=== PATIENT | male | born 1990 | race African-American/Black ===

== ENCOUNTER 2019-12-13 18:10 | Emergency (ER) | payer OTHER, SELFPAY ==
--- NOTE | 2019-12-13 18:21 | ED.URI ---
HPI - URI/Sore Throat General Chief Complaint: Upper Respiratory Infection Stated Complaint: chest congestion/asthma symptoms Time Seen by Provider: 12/13/19 18:34 Source: patient and RN notes reviewed Mode of arrival: ambulatory Limitations: no limitations History of Present Illness HPI Narrative: 29-year-old male presents with concern for asthma exacerbation. Reports chest tightness, shortness of breath. Reports a history of asthma. Reports he has a nebulizer at home that he has not used. Reports he has been using his rescue inhaler more frequently. Reports he uses a daily controller medicine. Reports history of hospitalizations for asthma. He denies fever, body aches, chills, diarrhea, nausea. MD elicited complaint: other (Wheezing) Related Data Allergies Allergy/AdvReac Type Severity Reaction Status Date / Time No Known Allergies Allergy Verified 12/13/19 18:49 Review of Systems Review of Systems: Narrative: CONSTITUTIONAL: Denies malaise, chills, sweats, or fever. EYES: Denies visual changes, redness, or discharge. ENT: Denies rhinorrhea, congestion, sinus pain, otalgia and sore throat. CARDIOVASCULAR: Denies chest pain, palpitations, or edema. RESPIRATORY: Denies cough. Denies chest tightness and dyspnea. GASTROINTESTINAL: Denies abdominal pain, nausea, vomiting, diarrhea SKIN: Denies rash or itching. MUSCULOSKELETAL: Denies myalgia. NEUROLOGIC: Denies headache. All systems reviewed & are unremarkable except as noted in HPI and below PMFSH Comments At time of signature, agree with nursing past medical, surgical, social and family history. There is no relevant family history pertinent to the presenting complaint Exam Narrative: Exam Narrative: GENERAL: Well-appearing, well-nourished, and in no acute distress. HEAD: Normocephalic EYES: PERRLA, conjunctivae clear ENT: Nares clear, turbinates erythematous, clear discharge. Mucous membranes moist. TM pearly mohr with dull light reflex bilaterally; no tragal tenderness. Oropharynx not erythematous without lesions. Tonsils not enlarged and without exudate, no drooling, no hoarseness, no trismus, uvula midline. NECK: Supple. No lymphadenopathy CHEST: Scattered expiratory wheeze otherwise clear to auscultation, breath sounds equal. Aeration good. No rhonchi, rales, or stridor. No respiratory distress, speaks in full sentences. HEART: Regular rate and rhythm. No murmur heard. SKIN: Warm, dry, no rash. NEURO: Alert and oriented x3. PSYCH: Normal mood and affect Course Course Emergency Course: Patient is aware of diagnosis, understands and agrees to treatment plan. Anticipatory guidance given. Patient agrees to follow-up as directed and is aware of reasons to seek care at the emergency department. Portions of this record may have been created with voice recognition software Vital Signs Vital signs: Vital Signs Temperature 97.9 F 12/13/19 18:25 Pulse Rate 96 12/13/19 18:25 Respiratory Rate 24 H 12/13/19 18:25 Blood Pressure 118/84 12/13/19 18:25 Pulse Oximetry 95 12/13/19 18:25 Temperature 97.9 F 12/13/19 18:25 Pulse Rate 96 12/13/19 18:25 Respiratory Rate 24 H 12/13/19 18:25 Blood Pressure 118/84 12/13/19 18:25 Pulse Oximetry 95 12/13/19 18:25 Reviewed. MDM - URI/Sore Throat MDM Narrative Medical decision making narrative: Differential diagnosis considered: Asthma exacerbation, COVID-19, strep pharyngitis, allergic rhinitis, upper respiratory tract infection, sinusitis, rhinosinusitis, nasopharyngitis. viral pharyngitis, otitis media, otitis externa, pneumonia, bronchitis, viral cough syndrome, viral syndrome, and influenza. Exam findings show no acute concerns or changes; patient is non-toxic appearing and is in no distress. Patient is appropriate for outpatient treatment and follow-up. Patient is low risk for COVID-19, has no exposure to known positive patient, no travel, no fever, no body aches, shortness of breath and chest tigh
[2019-12-13 18:25] VITALS: BP 118/84; PULSE 96; RESP 24; TEMP 36.6; O2SAT 95
== END 2019-12-13 19:00 | disposition home or self-care (01) ==
PROVIDERS: Emergency Provider Nurse Practitioner
DX: J45.41 Moderate persistent asthma with (acute) exacerbation (principal)
CPT/HCPCS: 99213; G0463

== ENCOUNTER 2021-03-22 16:54 | Emergency (ER) | payer OTHER, SELFPAY ==
[2021-03-22 17:05] VITALS: BP 143/76; PULSE 88; RESP 18; TEMP 36.9; O2SAT 98
--- NOTE | 2021-03-22 17:48 | ED.SOB ---
HPI - SOB/Dyspnea General Chief Complaint: Shortness of Breath/Dyspnea Stated Complaint: Shortness of breath Time Seen by Provider: 03/22/21 17:49 Source: patient, RN notes reviewed and old records reviewed Limitations: no limitations History of Present Illness HPI Narrative: 30 year old male preaents to express care with complaints of increasing shortness of breath for the past 2 days. Patient states that on Sunday he experienced increasing shortness of breath which lasted most of the day but over Sunday and Sunday he felt fine. He reports that since yesterday he has had increasing shortness of breath with some cough and wheezing noted, He states that he has been using his nebulizer and rescue inhaler with shortness of breath returning before next dose due. Patient denies any fevers, chills or sweats, denies any sinus congestion or drainage or any known sick contacts. MD elicited complaint: shortness of breath and cough Pertinent past history: asthma Onset (ago): day(s) (intermittent since Sunday) Timing: intermittent Severity: moderate Relieving factors: bronchodilators Treatment prior to arrival: bronchodilator Related Data Home oxygen amount: none Home Medications Medication Instructions Recorded Confirmed albuterol sulfate [Ventolin HFA] 90 inh INHALATION Q4-6H PRN 03/22/21 03/22/21 azelastine 137 mcg INTRANASAL DAILY 03/22/21 03/22/21 [id number] 160 inh INHALATION DAILY 03/22/21 03/22/21 [Breztri Aerosphere] montelukast 10 mg PO DAILY 03/22/21 03/22/21 Allergies Allergy/AdvReac Type Severity Reaction Status Date / Time No Known Allergies Allergy Verified 03/22/21 17:13 Review of Systems Review of Systems: Narrative: CONSTITUTIONAL: Denies fever, chills, or sweats. EYES: Denies visual changes, redness, or discharge. ENT: Denies rhinorrhea, congestion, sore throat, or otalgia. CARDIOVASCULAR: Denies chest pain, palpitations, or edema. RESPIRATORY: Positive for cough and dyspnea.tightness to chest with breathing GASTROINTESTINAL: Denies abdominal pain, nausea, vomiting, or diarrhea. GENITOURINARY: Denies dysuria or hematuria. SKIN: Denies rash or itching. MUSCULOSKELETAL: Denies back pain, joint pain, or myalgia. NEUROLOGIC: Denies headache, numbness, or weakness. PSYCHIATRIC: Denies anxiety or depression. All systems reviewed & are unremarkable except as noted in HPI and below PMFSH Past Medical History Medical History Asthma Surgical History Surgical History (Updated 03/25/21 @ 22:12 by Vandana Leung NP) No history of previous surgery Family History Family History Other No significant family history Social History Social History Smoking status: Never smoker Alcohol intake: current Alcohol use details: rare social Substance use: never Living arrangements: with family Gender identity (if verbalized by the patient): Male Exam Narrative: Exam Narrative: GENERAL: Well-appearing, well-nourished, and in no acute distress. HEAD: Normocephalic, atraumatic. EYES: PERRLA and EOMI. ENT: Nares clear, no rhinorrhea or epistaxis. Mucous membranes moist.TM's normal with good light reflex, throat pink with no lesions or exudates, no tonsil enlargement. NECK: Supple.no lymphadenopathy CHEST: Scattered wheezing on auscultation. No respiratory distress.SAO2 98% on room air, occasional dry cough HEART: Regular rate and rhythm. No murmur heard. Normal peripheral pulses. ABDOMEN: Soft, nontender, nondistended, normal active bowel sounds. EXTREMITIES: Normal range of motion. No edema. SKIN: Warm, dry, no rash. NEURO: No focal deficits. Alert and oriented x3. Course Vital Signs Vital signs: Vital Signs Temperature 36.9 C 03/22/21 17:05 Pulse Rate 88 03/22/21 17:05 Respiratory Rate 18 03/22/21 17:05
[2021-03-22] MEDS: IPRATROPIUM BR 0.02% INH SOLN 0.5 MG/2.5 ML VIAL INHALATION (18:16)
[2021-03-22] MEDS: ALBUTEROL SULFATE NEB 2.5 MG/3 ML INH INHALATION (18:16)
[2021-03-22 18:40] VITALS: PULSE 85; RESP 22; O2SAT 97
== END 2021-03-22 18:49 | disposition home or self-care (01) ==
PROVIDERS: Emergency Provider Registered Nurse; PCP Nurse Practitioner Family
DX: J45.901 Unspecified asthma with (acute) exacerbation (principal)
CPT/HCPCS: 94640; 99213; G0463

== ENCOUNTER 2021-08-06 16:31 | Emergency (ER) | payer OTHER, SELFPAY ==
[2021-08-06 16:38] VITALS: BP 143/88; PULSE 106; RESP 20; TEMP 37.1; O2SAT 100
--- NOTE | 2021-08-06 16:38 | ED.UPPEXIN ---
HPI - Extremity Injury (Upper) General Chief Complaint: Extremity Injury, Upper Stated Complaint: Finger Injury/Right Time Seen by Provider: 08/06/21 16:38 Source: patient and RN notes reviewed History of Present Illness HPI narrative: Patient is a 31-year-old male who presents the urgent care with complaints of swelling, redness and infection of the right third finger. Patient states he noticed it yesterday and increased in swelling when he woke up today. Patient has not done anything [id number] for his symptoms. Denies of any trauma or injury. Patient does admit to biting his fingernails/cuticles. No other acute complaints. No acute distress noted. Patient read the plan of care. Some parts of this dictation were generated by voice recognition software and may contain typographical and/or grammatical inaccuracies. Related Data Home Medications Medication Instructions Recorded Confirmed albuterol sulfate [Ventolin HFA] 90 inh INHALATION Q4-6H PRN 03/22/21 03/22/21 nhtpxheheq-qtcrlhkg-driyydkcrq 160 inh INHALATION DAILY 03/22/21 03/22/21 [[employer]] montelukast 10 mg PO DAILY 03/22/21 03/22/21 Allergies Allergy/AdvReac Type Severity Reaction Status Date / Time No Known Allergies Allergy Verified 03/22/21 17:13 Review of Systems Review of Systems: CONSTITUTIONAL: Denies fever, chills, or sweats. EYES: Denies visual changes, redness, or discharge. ENT: Denies rhinorrhea, congestion, sore throat, or otalgia. CARDIOVASCULAR: Denies chest pain, palpitations, or edema. RESPIRATORY: Denies cough or dyspnea. GASTROINTESTINAL: Denies abdominal pain, nausea, vomiting, or diarrhea. GENITOURINARY: Denies dysuria or hematuria. SKIN: Reports of swelling, pain to the right third finger MUSCULOSKELETAL: Denies back pain, joint pain, or myalgia. NEUROLOGIC: Denies headache, numbness, or weakness. All other systems reviewed are negative, except as documented in HPI. [facility] Past Medical History Medical History (Updated 08/06/21 @ 16:59 by YADY Kimble) Asthma Surgical History Surgical History (Updated 03/25/21 @ 22:12 by Vandana Leung NP) No history of previous surgery Family History Family History Other No significant family history Social History Social History Smoking status: Never smoker Alcohol intake: current Alcohol use details: rare social Substance use: never Gender identity (if verbalized by the patient): Male Comments At the time of my signature, I reviewed and agree with the nursing past medical, surgical, social, and family history. There is no relevant family history pertinent to the patient complaint. Exam Narrative: GENERAL: This is a well-nourished, well-developed patient, in no apparent distress. HEAD: normocephalic, atraumatic. EYES: PERRL. Sclera clear/white. Vision is grossly intact. EARS: External ears normal NOSE: External nose normal with no obvious nasal discharge, nares without redness, no rhinorrhea. THROAT: Mucous membranes moist NECK: Neck supple CARDIOVASCULAR: Regular rate and rhythm without murmurs, gallops, or rubs. RESPIRATORY: Clear to auscultation. Breath sounds equal bilaterally. No wheezes, rales, or rhonchi. SKIN: Moderate erythema and edema surrounding the proximal cuticle to the ulnar aspect of the right third digit with moderate tenderness-paronychia NEURO: awake, alert, and oriented to person, place and time. There were no obvious focal neurologic abnormalities. EXTREMITIES: No clubbing, cyanosis, or edema. Positive strong right radial pulse with capillary refill less than 2 seconds Course Vital Signs Vital signs: Vital Signs Temperature 98.8 F 08/06/21 16:38 Pulse Rate 106 H 08/06/21 16:38 Respiratory Rate 20 08/06/21 16:38 Blood Pressure 143/88 H 08/06/21 16:38 Pulse Oximetry 100 08/06/21 16:38
== END 2021-08-06 17:11 | disposition home or self-care (01) ==
PROVIDERS: Emergency Provider Nurse Practitioner Family; PCP Nurse Practitioner Family
DX: L03.011 Cellulitis of right finger (principal); J45.909 Unspecified asthma, uncomplicated
CPT/HCPCS: 10060; 99213; G0463

== ENCOUNTER 2022-01-07 11:41 | Emergency (ER) | payer OTHER, SELFPAY ==
--- NOTE | 2022-01-07 11:46 | ED.GENADULT ---
HPI - General Adult General Chief complaint: Upper Respiratory Infection Stated complaint: Shortness of Breath/Cough Time Seen by Provider: 01/07/22 11:46 Source: patient Mode of arrival: ambulatory Limitations: no limitations History of Present Illness HPI narrative: 30-year-old male patient presents to the [facility] with complaints of cough and shortness of breath for the past 4 days. Patient states he does have a history of asthma and thinks that with the weather change that his asthma has been exacerbated. Patient states he does been taking Singulair and using his rescue inhaler about 5 times a day. Patient denies fevers, body aches or chills. Patient states he is fully vaccinated against COVID and has had his flu shot this year. Related Data Home Medications Medication Instructions Recorded Confirmed qbolpcpjkj-etqiexzw-alnozjfzer 160 inh INHALATION DAILY 03/22/21 01/07/22 [facility] montelukast 10 mg PO DAILY 03/22/21 01/07/22 Allergies Allergy/AdvReac Type Severity Reaction Status Date / Time No Known Allergies Allergy Verified 03/22/21 17:13 Review of Systems Review of Systems: CONSTITUTIONAL: Denies fever, chills, or sweats. EYES: Denies visual changes, redness, or discharge. ENT: Denies rhinorrhea, congestion, sore throat, or otalgia. CARDIOVASCULAR: Denies chest pain, palpitations, or edema. RESPIRATORY: Positive cough and dyspnea. GASTROINTESTINAL: Denies abdominal pain, nausea, vomiting, or diarrhea. GENITOURINARY: Denies dysuria or hematuria. SKIN: Denies rash or itching. MUSCULOSKELETAL: Denies back pain, joint pain, or myalgia. NEUROLOGIC: Denies headache, numbness, or weakness. PSYCHIATRIC: Denies anxiety or depression. [facility] Past Medical History Medical History Asthma Surgical History Surgical History No history of previous surgery Family History Family History Other No significant family history Social History Social History Smoking status: Never smoker Alcohol intake: current Alcohol use details: rare social Substance use: never Gender identity (if verbalized by the patient): Male Comments At the time of my signature I agree with nursing past medical history, surgical, social, and family history. There is no relevant family history pertinent to the presenting complaint. Exam Narrative: GENERAL: Well-appearing, well-nourished, and in no acute distress. HEAD: Normocephalic, atraumatic. EYES: PERRLA and EOMI. ENT: Nares clear, no rhinorrhea or epistaxis. Mucous membranes moist. NECK: Supple. No lymphadenopathy CHEST: Wheezing to bilateral upper and lower extremities on auscultation. No respiratory distress. Patient able talk in clear complete sentences. No tripoding noted HEART: Regular rate and rhythm. No murmur heard. Normal peripheral pulses. ABDOMEN: Soft, nontender, nondistended, normal active bowel sounds. EXTREMITIES: Normal range of motion. No edema. SKIN: Warm, dry, no rash. NEURO: No focal deficits. Alert and oriented x3. Course Course Level of Care: Express Care Visit Reevaluation(s) Reevaluation #1: Reevaluated patient and he states that he is feeling a little bit better. Continue to have some noted expiratory wheezing to upper lower lobes. Will discharge home with a course of oral steroids, refill on his rescue inhaler and his Singulair. Patient is aware of the plan of care denies any other questions or concerns. Date: 01/07/22 Time: 12:51 Vital Signs Vital signs: Vital Signs Temperature 36.9 C 01/07/22 11:48 Pulse Rate 85 01/07/22 11:48 Respiratory Rate 18 01/07/22 11:48 Blood Pressure 123/75 01/07/22 11:48 Pulse Oximetry 98 01/07/22 11:48 Temperature 36.9 C 01/07/22 11:55 Pulse Rate 85
[2022-01-07 11:48] VITALS: BP 123/75; PULSE 85; RESP 18; TEMP 36.9; O2SAT 98
[2022-01-07 11:55] VITALS: BP 123/75; PULSE 85; RESP 18; TEMP 36.9; O2SAT 98
[2022-01-07] MEDS: IPRATROPIUM BR 0.02% INH SOLN 0.5 MG/2.5 ML VIAL INHALATION (12:21)
[2022-01-07] MEDS: ALBUTEROL SULFATE NEB 2.5 MG/3 ML INH INHALATION (12:22)
== END 2022-01-07 12:56 | disposition home or self-care (01) ==
PROVIDERS: Emergency Provider Nurse Practitioner Family
DX: J45.901 Unspecified asthma with (acute) exacerbation (principal); Z20.822 Contact with and (suspected) exposure to COVID-19
CPT/HCPCS: 87426; 87804; 94640; 99213; C9803; G0463

== ENCOUNTER 2022-01-26 15:47 | Emergency (ER) | payer OTHER, SELFPAY ==
[2022-01-26 15:51] VITALS: BP 131/75; PULSE 88; RESP 16; TEMP 36.5; O2SAT 98
--- NOTE | 2022-01-26 15:59 | ED.SKABFB ---
HPI - Skin/Abscess/Foreign Bdy General Chief complaint: Skin/Abscess/Foreign Body Stated complaint: Rash on right foot Time Seen by Provider: 01/26/22 15:59 Source: patient and RN notes reviewed Mode of arrival: ambulatory Limitations: no limitations History of Present Illness HPI narrative: 31-year-old male presents concern for itchy rash on his right foot between his toes. Reports it started last . Reports has been using emhi-qun-uqlxrwz athlete's foot treatment without relief. He denies any other rash. Denies drainage or pain. MD complaint: rash Related Data Home Medications Medication Instructions Recorded Confirmed zyfcbmaasd-xpjmxjvu-vvtiecnlzp 160 inh INHALATION DAILY 03/22/21 01/07/22 [[employer]] Allergies Allergy/AdvReac Type Severity Reaction Status Date / Time No Known Allergies Allergy Verified 03/22/21 17:13 Review of Systems Review of Systems: CONSTITUTIONAL: Denies malaise, chills, sweats, or fever. EYES: Denies redness, or discharge. ENT: Denies rhinorrhea, congestion, swollen lips, swollen tongue CARDIOVASCULAR: Denies chest pain, palpitations, or edema. RESPIRATORY: Denies cough or dyspnea. GASTROINTESTINAL: Denies abdominal pain, nausea, vomiting SKIN: Reports itchy rash on the right foot between the toes MUSCULOSKELETAL: Denies joint pain or myalgia. NEUROLOGIC: Denies headache. All systems reviewed & are unremarkable except as noted in HPI and below PMFSH Past Medical History Medical History Asthma Surgical History Surgical History No history of previous surgery Family History Family History Other No significant family history Social History Social History Smoking status: Never smoker Alcohol intake: current Alcohol use details: rare social Substance use: never Gender identity (if verbalized by the patient): Male Comments At time of signature, agree with nursing past medical, surgical, social and family history. There is no relevant family history pertinent to the presenting complaint Exam Narrative: GENERAL: Well-appearing, well-nourished, and in no acute distress. HEAD: Normocephalic, atraumatic. EYES: PERRLA, conjunctivae clear, and EOMI. ENT: Mucous membranes moist. Oropharynx without edema, erythema or lesions. NECK: Supple. No lymphadenopathy CHEST: Clear to auscultation. No respiratory distress. HEART: Regular rate and rhythm. SKIN: Warm, dry. Papular skin colored rash with some plaque noted between all 5 digits of the right foot NEURO: Alert and oriented x3. PSYCH: Normal mood and affect Course Course Emergency Course: Patient is aware of diagnosis, understands and agrees to treatment plan. Anticipatory guidance given. Patient agrees to follow-up as directed and is aware of reasons to seek care at the emergency department. Portions of this record may have been created with voice recognition software Level of Care: Express Care Visit Vital Signs Vital signs: Vital Signs Temperature 97.7 F 01/26/22 15:51 Pulse Rate 88 01/26/22 15:51 Respiratory Rate 16 01/26/22 15:51 Blood Pressure 131/75 01/26/22 15:51 Pulse Oximetry 98 01/26/22 15:51 Temperature 97.7 F 01/26/22 15:51 Pulse Rate 88 01/26/22 15:51 Respiratory Rate 16 01/26/22 15:51 Blood Pressure 131/75 01/26/22 15:51 Pulse Oximetry 98 01/26/22 15:51 Reviewed. MDM - Skin/Abscess/Foreign Bdy MDM Narrative Medical decision making narrative: Does not appear at this time to be erythema multiforme, bullous, SJS, TEN; no evidence at this time to suggest RMSF, endocarditis or Lyme disease; patient looks well, nontoxic and is tolerating oral intake; no neurologic signs or symptoms; no headache, photophobia or neck pain; afeb
== END 2022-01-26 16:08 | disposition home or self-care (01) ==
PROVIDERS: Emergency Provider Nurse Practitioner; PCP Nurse Practitioner Family
DX: B35.3 Tinea pedis (principal); J45.909 Unspecified asthma, uncomplicated
CPT/HCPCS: 99213; G0463

== ENCOUNTER 2022-06-04 17:37 | Emergency (ER) | payer OTHER, SELFPAY ==
[2022-06-04 17:41] VITALS: BP 140/94; PULSE 90; RESP 18; TEMP 37.2; O2SAT 98
--- NOTE | 2022-06-04 18:10 | ED.SKABFB ---
HPI - Skin/Abscess/Foreign Bdy General Chief complaint: Skin/Abscess/Foreign Body Stated complaint: boil on bottom of right foot Time Seen by Provider: 06/04/22 18:20 Related Data Home Medications Medication Instructions Recorded Confirmed budesonide 160 mcg-glycopyr 9 160 inh inhalation BID 03/22/21 06/04/22 mcg-formot 4.8 mcg/actuation HFA inhaler (Breztri Aerosphere) azelastine 137 mcg (0.1 %) nasal 1 spray intranasal DAILY 06/04/22 06/04/22 spray aerosol fluticasone propionate 50 1 spray intranasal DAILY 06/04/22 06/04/22 mcg/actuation nasal spray,suspension Allergies Allergy/AdvReac Type Severity Reaction Status Date / Time No Known Allergies Allergy Verified 06/04/22 17:59 Review of Systems Review of Systems: CONSTITUTIONAL: Denies fever, chills, or sweats. EYES: Denies visual changes, redness, or discharge. ENT: Denies rhinorrhea, congestion, sore throat, or otalgia. CARDIOVASCULAR: Denies chest pain, palpitations, or edema. RESPIRATORY: Denies cough or dyspnea. GASTROINTESTINAL: Denies abdominal pain, nausea, vomiting, or diarrhea. GENITOURINARY: Denies dysuria or hematuria. SKIN: Denies rash or itching. MUSCULOSKELETAL: Denies back pain, joint pain, or myalgia. NEUROLOGIC: Denies headache, numbness, or weakness. PSYCHIATRIC: Denies anxiety or depression. All systems reviewed & are unremarkable except as noted in HPI and below PMFSH Past Medical History Medical History (Updated 06/05/22 @ 00:00 by Odilon Hendricks) Asthma Tinea pedis Surgical History Surgical History No history of previous surgery Family History Family History Other No significant family history Social History Social History Smoking status: Never smoker Alcohol intake: current Alcohol use details: rare social Substance use: never Gender identity (if verbalized by the patient): Male Comments At time of signature, agree with nursing past medical, surgical, social and family history. There is no relevant family history pertinent to the presenting complaint Exam Narrative: GENERAL: Well-appearing, well-nourished, and in no acute distress. HEAD: Normocephalic, atraumatic. EYES: PERRLA and EOMI. ENT: Nares clear, no rhinorrhea or epistaxis. Mucous membranes moist. NECK: Supple. CHEST: Clear to auscultation. No respiratory distress. HEART: Regular rate and rhythm. No murmur heard. Normal peripheral pulses. ABDOMEN: Soft, nontender, nondistended, normal active bowel sounds. EXTREMITIES: Normal range of motion. No edema. SKIN: Warm, dry, no rash. NEURO: No focal deficits. Alert and oriented x3. Course Course Level of Care: Express Care Visit Vital Signs Vital signs: Vital Signs Temperature 37.2 C 06/04/22 17:41 Pulse Rate 90 06/04/22 17:41 Respiratory Rate 18 06/04/22 17:41 Blood Pressure 140/94 H 06/04/22 17:41 Pulse Oximetry 98 06/04/22 17:41 Oxygen Delivery Room Air 06/04/22 17:41 Temperature 37.2 C 06/04/22 17:41 Pulse Rate 90 06/04/22 17:41 Respiratory Rate 18 06/04/22 17:41 Blood Pressure 140/94 H 06/04/22 17:41 Pulse Oximetry 98 06/04/22 17:41 Oxygen Delivery Room Air 06/04/22 17:41 MDM - Skin/Abscess/Foreign Bdy Lab Data Attestation: I reviewed the patient's lab results. Labs: Lab Results 06/04/22 Range/Units 18:10 Herpes Simplex Culture Pending Critical Care Time Critical Care Time Critical Care Time: No Discharge Plan Discharge Clinical Impression: Tinea pedis Patient Disposition: Home, Self-Care Condition: Stable Instructions: Athlete's Foot (ED) Additional Instructions: Soak foot daily with liquid Dial soap apply clotrimazole ointment as previously ordered twice daily watch for increasing infection--redness, swelling, drainage
--- NOTE | 2022-06-04 18:20 | ED.SKABFB ---
HPI - Skin/Abscess/Foreign Bdy General Chief complaint: Skin/Abscess/Foreign Body Stated complaint: boil on bottom of right foot Time Seen by Provider: 06/04/22 18:20 History of Present Illness HPI narrative: 32 [place] old male who presents to [facility] care with complaints of circular fluid lesions noted to bottom of his right foot and to lateral aspect of right foot near 5th toe with pustular type of lesions noted. Patient has been treated for tinea pedia in the past, states is only to his right foot. Patent states that largest lesion just appeared this morning which measures 1cm X1cm and smaller lesion .25 diameter next to it. Small pustular lesion near tight 5th toe. MD complaint: lesion (to bottom of right foot and to lateral area of 5th toe) Onset (ago): day(s) Treatments prior to arrival: other (clotrimazole) Related Data Home Medications Medication Instructions Recorded Confirmed budesonide 160 mcg-glycopyr 9 160 inh inhalation BID 03/22/21 06/04/22 mcg-formot 4.8 mcg/actuation HFA inhaler (ShieldEffect) azelastine 137 mcg (0.1 %) nasal 1 spray intranasal DAILY 06/04/22 06/04/22 spray aerosol fluticasone propionate 50 1 spray intranasal DAILY 06/04/22 06/04/22 mcg/actuation nasal spray,suspension Allergies Allergy/AdvReac Type Severity Reaction Status Date / Time No Known Allergies Allergy Verified 06/04/22 17:59 Review of Systems Review of Systems: CONSTITUTIONAL: Denies fever, chills, or sweats. EYES: Denies visual changes, redness, or discharge. ENT: Denies rhinorrhea, congestion, sore throat, or otalgia. CARDIOVASCULAR: Denies chest pain, palpitations, or edema. RESPIRATORY: Denies cough or dyspnea. GASTROINTESTINAL: Denies abdominal pain, nausea, vomiting, or diarrhea. GENITOURINARY: Denies dysuria or hematuria. SKIN: blister tpe of lesions on right foot MUSCULOSKELETAL: Denies back pain, joint pain, or myalgia. NEUROLOGIC: Denies headache, numbness, or weakness. PSYCHIATRIC: Denies anxiety or depression. All systems reviewed & are unremarkable except as noted in HPI and below PMFSH Past Medical History Medical History (Updated 06/05/22 @ 00:00 by Background Daemon) Asthma Tinea pedis Surgical History Surgical History No history of previous surgery Family History Family History Other No significant family history Social History Social History Smoking status: Never smoker Alcohol intake: current Alcohol use details: rare social Substance use: never Gender identity (if verbalized by the patient): Male Exam Narrative: GENERAL: Well-appearing, well-nourished, and in no acute distress. HEAD: Normocephalic, atraumatic. EYES: PERRLA and EOMI. ENT: Nares clear, no rhinorrhea or epistaxis. Mucous membranes moist.TM's normal with good light reflex, throat pink with no lesions or swelling NECK: Supple.no lymphadenopathy CHEST: Clear to auscultation. No respiratory distress.SAO2 98% on room air HEART: Regular rate and rhythm. No murmur heard. Normal peripheral pulses. ABDOMEN: Soft, nontender, nondistended, normal active bowel sounds. EXTREMITIES: Normal range of motion. No edema. SKIN: Warm, dry, fluid filled pustules to michael aspect of right foot and along 5th toe appearing the last few days irritating no acute pain NEURO: No focal deficits. Alert and oriented x3. Course Course Level of Care: Express Care Visit Vital Signs Vital signs: Vital Signs Temperature 37.2 C 06/04/22 17:41 Pulse Rate 90 06/04/22 17:41 Respiratory Rate 18 06/04/22 17:41 Blood Pressure 140/94 H 06/04/22 17:41 Pulse Oximetry 98 06/04/22 17:41 Oxygen Delivery Room Air 06/04/22 17:41 Temperature 37.2 C 06/04/22 17:41 Pulse Rate 90 06/04/22 17:41 Respiratory Rate 18 06/04/22 17:41 Blood Pressure 140
== END 2022-06-04 18:35 | disposition home or self-care (01) ==
PROVIDERS: Emergency Provider Registered Nurse; PCP Nurse Practitioner Family
DX: B35.3 Tinea pedis (principal); J45.909 Unspecified asthma, uncomplicated
CPT/HCPCS: 87070; 87205; 87255; 99213; G0463

== ENCOUNTER 2024-01-08 19:44 | Emergency (ER) | payer BC, SELFPAY ==
[2024-01-08 19:53] VITALS: BP 125/82; PULSE 85; RESP 16; TEMP 36.9; O2SAT 98
--- NOTE | 2024-01-08 19:57 | ED.GENADULT ---
HPI - General Adult General Chief complaint: Eye Problems Stated complaint: Left Eye Problem Time Seen by Provider: 01/08/24 19:55 Source: patient, RN notes reviewed and old records reviewed Mode of arrival: ambulatory Limitations: no limitations History of Present Illness HPI narrative: 33 year old male who presents to [facility] with complaints of red raised area of tissue to the left upper eyelid, denies any pain or drainage from area. Patient reports that he first noted the area on the of the month and initially it was small slightly raised area but has increased in size and is somewhat firm now. Patient reports also that he noted he had blood shot area to his left eye reports no trauma to eye and no changes in vision. MD complaint: lesion to left upper lateral eyelid Onset (ago): day(s) (10) Severity: mild Treatments prior to arrival: none Related Data Home Medications Medication Instructions Recorded Confirmed budesonide 160 mcg-glycopyr 9 160 inh inhalation BID 03/22/21 06/04/22 mcg-formot 4.8 mcg/actuation HFA inhaler (A[employer]point[employer]ORE[employer]ITU [employer]here) Allergies Allergy/AdvReac Type Severity Reaction Status Date / Time No Known Allergies Allergy Verified 06/04/22 17:59 Review of Systems Review of Systems: CONSTITUTIONAL: Denies fever, chills, or sweats. CARDIOVASCULAR: Denies chest pain, palpitations, or edema. RESPIRATORY: Denies cough or dyspnea. GASTROINTESTINAL: Denies abdominal pain, nausea, vomiting SKIN: Reports redness to lesion on upper left lateral eye lid area no swelling. No vesicle formation some induration but no fluctuance of tissue MUSCULOSKELETAL: Denies myalgia. NEUROLOGIC: Denies headache, numbness All systems reviewed & are unremarkable except as noted in HPI and below PMFSH Past Medical History Medical History Asthma Tinea pedis Surgical History Surgical History No history of previous surgery Family History Family History Other No significant family history Social History Social History Smoking status: Never smoker Alcohol intake: current Alcohol use details: rare social Substance use: never Living arrangements: with family Gender identity (if verbalized by the patient): Male Comments At time of signature, agree with nursing past medical, surgical, social and family history. There is no relevant family history pertinent to the presenting complaint Exam Narrative: GENERAL: Well-appearing, well-nourished, and in no acute distress. HEAD: Normocephalic, atraumatic. EYES: PERRLA and EOMI.small blood shot area of left lateral eye with no visual changes denies any trauma to eye ENT: Nares clear, no rhinorrhea or epistaxis. Mucous membranes moist. NECK: Supple. no lymphadenopathy CHEST: Clear to auscultation. No respiratory distress.no cough noted SAO2 98% on room air HEART: Regular rate and rhythm. No murmur heard. Normal peripheral pulses. ABDOMEN: Soft, nontender, nondistended, normal active bowel sounds. EXTREMITIES: Normal range of motion. No edema. SKIN: Warm, dry.small raised lesion with some, induration,no tenderness, no warmth to left distal lateral eyelid NEURO: No focal deficits. Alert and oriented x3. Course Course Emergency Course: Patient is aware of diagnosis, understands and agrees to treatment plan. Anticipatory guidance given. Patient agrees to follow-up as directed and is aware of reasons to seek care at the emergency department. Portions of this record may have been created with voice recognition software Level of Care: Express Care Visit Vital Signs Vital signs: Vital Signs Temperature 36.9 C 01/08/24 19:53 Pulse Rate 85 01/08/24 19:53 Respiratory Rate 16 01/08/24 19:53 Blood Pressure 125/82
== END 2024-01-08 20:15 | disposition home or self-care (01) ==
PROVIDERS: Emergency Provider Registered Nurse; PCP Nurse Practitioner Family
DX: H02.89 Other specified disorders of eyelid (principal); H11.32 Conjunctival hemorrhage, left eye; J45.909 Unspecified asthma, uncomplicated
CPT/HCPCS: 99213; G0463

== ENCOUNTER 2025-03-23 11:35 | Emergency (ER) | payer BC, SELFPAY ==
--- OUTSIDE RECORDS SUMMARY | 2025-03-23 11:43 | XMS_ITS | Referral Summary ---
Author Organization [facility] Address [address] [place] [address] Care Team Providers Care All Around Gear Machine Operator Name Role Phone Aminta Wynne NP Primary Care Provider [phone] Allergies No known active allergies Medications albuterol (PROVENTIL,VENTOL IN) 2.5 mg/0.5 mL solution for nebulization 0.5 mL every 8 hours Active montelukast (SINGULAIR) 10 mg tablet Take 10 mg by mouth nightly 0 Active albuterol HFA (PROVENTIL HFA,VENTOLIN HFA,PROAIR HFA) 90 mcg/actuation inhaler Inhale 2 puffs every 4 (four) hours as needed for wheezing 1 Inhaler 9 Active budesonide-formot lidia (SYMBICORT) 160-4.5 mcg/actuation inhaler Inhale 2 puffs 2 (two) times a day 1 Inhaler 9 Active budesonide-glycop yr-formoterol (Breztri Aerosphere) 160-9-4.8 mcg/actuation HFA aerosol inhaler Inhale 2 puffs 2 (two) times a day 10.7 g 1 2 Active ibuprofen (ADVIL,MOTRIN) 800 mg tablet Take 1 tablet (800 mg total) by mouth 3 (three) times a day 21 tablet 4 Active traMADoL (ULTRAM) 50 mg tablet Take 1 tablet (50 mg total) by mouth every 6 (six) hours 10 tablet 4 Active guaiFENesin-dextr omethorphan ER (MUCINEX DM) 600-30 mg tablet extended release 12 hr Take 1 tablet by mouth 2 (two) times a day as needed (cough, congestion) 20 tablet 4 Active acetaminophen (TYLENOL) 500 mg tablet Take 2 tablets (1,000 mg total) by mouth every 6 (six) hours as needed for pain 30 tablet 4 Active Social History Tobacco Use Types Packs/Day Years Used Date Smoking Tobacco: Never Assessed Personal Safety Answer Date Recorded Have you ever been in or are you currently in a harmful physical or emotional relationship or is someone making you feel afraid or unsafe? Denies 09/15/2024 Sex and Gender Information Value Date Recorded Sex Assigned at Not on file Legal Sex Male 3:32 PM RETAIL EVENT ASSISTANT Gender Identity Male 03/05/2021 1:46 AM CDT Sexual Orientation Straight 03/05/2021 1: 46 AM CDT Last Filed Vital Signs Vital Sign Reading Time Taken Comments Blood Pressure 124/80 09/15/2024 7:52 AM RETAIL EVENT ASSISTANT Pulse 86 09/15/2024 7:52 AM RETAIL EVENT ASSISTANT Temperature 37 C (98.6 F) 09/15/2024 7:52 AM RETAIL EVENT ASSISTANT Respiratory Rate 18 09/15/2024 7:52 AM RETAIL EVENT ASSISTANT Oxygen Saturation 97% 09/15/2024 7:52 AM RETAIL EVENT ASSISTANT Inhaled Oxygen Concentration - - Weight 82.6 kg (182 lb) 03/06/2024 2:25 AM CDT Height 182.9 cm (6') 03/06/2024 2:25 AM CDT Body Mass Index 24.68 03/06/2024 2:25 AM CDT Plan of Treatment Not on file Insurance [facility] PLAN [facility] CHOICE PLUS IDPA [facility] PLAN Care Teams All Around Gear Machine Operator Relationship Specialty Start Date End Date Aminta Wynne NP [address] [place] [id number] PCP - General 10/18/20
--- OUTSIDE RECORDS SUMMARY | 2025-03-23 11:43 | XMS_ITS | Clinical Summary ---
Author Organization [facility] Address [address] [place] [address] Care Team Providers Care Personal Care Aide Name Role Phone Unavailable Primary Care Provider Unavailabl e Medications budesonide-form oterol (SYMBICORT) 160-4.5 mcg/actuation HFA Aerosol Inhaler Take 2 Puffs by inhalation 2 times daily. Active albuterol HFA 90 mcg inhaler Take 2 Puffs by inhalation every 6 hours as needed for Shortness of Breath. Active montelukast (SINGULAIR) 10 mg tablet Take 10 mg by mouth daily at bedtime. Active HYDROcodone-katty taminophen (NORCO) 5-325 mg tabletIndicatio ns:Achilles tendon injury, left, initial encounter Take 1 Tablet by mouth every 6 hours as needed for Pain, Severe. Max Daily Amount: 4 Tablets 28 Tablet 04/10/2024 4:26 PM CDT 4 Active docusate sodium (COLACE) 100 mg capsule Take 1 Capsule (100 mg) by mouth 2 times daily as needed for Constipation. 30 Capsule 04/10/2024 4:26 PM CDT 4 Active ondansetron (Zofran) 4 mg Tablet Take 1 Tablet (4 mg) by mouth every 8 hours as needed for Nausea/Vomiting . 10 Tablet 04/10/2024 4:26 PM CDT 4 Active ibuprofen (MOTRIN) 600 mg tablet Take 1 Tablet (600 mg) by mouth every 6 hours as needed for Pain, Mild. 60 Tablet 1 04/10/2024 4:26 PM CDT 4 Active aspirin (Ecotrin) 325 mg Tablet, Delayed Release (E.C.) Take 1 Tablet (325 mg) by mouth 2 times daily. 28 Tablet 04/10/2024 4:26 PM CDT 4 Active Active Problems No known active problems Encounters Date Type Department Care Team Description 03/17/2025 External Device Data [facility] ABSTRACTION Provider, Abstract 03/04/2025 External Device Data [facility]CTION Provider, Abstract 02/06/2025 External Device Data [facility]STRACTION Provider, Abstract 01/20/2025 External Device Data [facility]CTION Provider, Abstract from Last 3 Months Social History Tobacco Use Types Packs/Day Years Used Date Smoking Tobacco: Never Smokeless Tobacco: Never Tobacco Cessation:Counseling Given: Not Answered Alcohol Use Standard Drinks/Week Comments Yes 0 (1 standard drink = 0.6 oz pur e alcohol) liquor drink 2-3 x weekly Feeling Safe Answer Date Recorded Are you in a relationship wi th someone who hurts you emotionally and/or physically? No 04/10/2024 Sex and Gender Information Value Date Recorded Sex Assigned at Not on file Legal Sex Male 10:23 AM CDT Gender Identity Not on file Sexual Orientation Not on file Last Filed Vital Signs Vital Sign Reading Time Taken Comments Blood Pressure 115/63 04/10/2024 4:30 PM CDT Pulse 80 04/10/2024 4:30 PM CDT Temperature 36.2 C (97.2 F) 04/10/2024 4:15 PM CDT Respiratory Rate 19 04/10/2024 4:30 PM CDT Oxygen Saturation 97% 04/10/2024 4:30 PM CDT Inhaled Oxygen Concentration - - Weight 82.6 kg (182 lb) 04/10/2024 12:22 PM CDT Height 182.9 cm (6') 04/10/2024 12:22 PM CDT Body Mass Index 24.68 04/10/2024 12:22 PM CDT Plan of Treatment Health Maintenance Due Date Last Done Comments COVID-19 Vaccine ( season) 2024 09/26/2021, 06/16/2021 INFLUENZA VACCINE (#1) 2025 , 10/12/2020, 06/30/2019, Additional history exists DTAP/TDAP/TD VACCINES (7 - Td or Tdap) 08/02/2027 08/02/2017, 07/13/2008, 12/18/1994, Additional history exists HEPATITIS B VACCINES Completed 07/17/1998, 03/23/1998, 12/31/1997 HPV VACCINES Aged Out No longer eligi ble based on patient's age to complete this topic Medical Devices Implanted Type Area Living Advisor Device Identifier Shelf Expiration Date Model / Serial / Lot Internalbrace Implant System Implanted:Qty: 1 on 04/10/2024 by Allen Lux MD at [facility] Other Left: Foot [employer] [id number] P / / Description:Requisition # [id number]. Insurance [employer] Medicaid Advance Directives For more information, please contact: [phone] * Full Code (Latest Code Status on File) Date Activated Date Inactivated Comments 04/10/2024 12:07 PM 04/10/2024 6:55 PM
--- OUTSIDE RECORDS SUMMARY | 2025-03-23 11:43 | XMS_ITS | Encounter Summary ---
Author Organization [facility] Address [address] [place] [address] Care Team Providers Care Lead Driver Name Role Phone Unavailable Primary Care Provider Unavailabl e Prior Encounters Date Type Department Care Team Description 06/25/2023 2:00 PM EDT Office Visit [facility] [address] [phone] 06/25/2023 3:30 PM EDT Office Visit [facility] [address] [phone] Jordan Cuadra DDS Plan of Treatment Not on file Procedures Procedure Name Priority Date/Time Associated Diagnosis Comments NEW PATIENT PHOTO INTRA ORAL Routine 06/25/2023 3:30 PM EDT NEW PATIENT PHOTO INTRA ORAL Routine 06/25/2023 3:30 PM EDT NEW PATIENT PHOTO INTRA ORAL Routine 06/25/2023 3:30 PM EDT NEW PATIENT PHOTO INTRA ORAL Routine 06/25/2023 3:30 PM EDT NEW PATIENT INTRAORAL - PERIAPICAL EACH ADDITIONAL RADIOGRAPHIC IMAGE Routine 06/25/2023 3:30 PM EDT NEW PATIENT INTRAORAL - PERIAPICAL EACH ADDITIONAL RADIOGRAPHIC IMAGE Routine 06/25/2023 3:30 PM EDT NEW PATIENT INTRAORAL - PERIAPICAL EACH ADDITIONAL RADIOGRAPHIC IMAGE Routine 06/25/2023 3:30 PM EDT NEW PATIENT INTRAORAL - PERIAPICAL EACH ADDITIONAL RADIOGRAPHIC IMAGE Routine 06/25/2023 3:30 PM EDT NEW PATIENT INTRAORAL - PERIAPICAL EACH ADDITIONAL RADIOGRAPHIC IMAGE Routine 06/25/2023 3:30 PM EDT NEW PATIENT INTRAORAL - PERIAPICAL FIRST RADIOGRAPHIC IMAGE Routine 06/25/2023 3:30 PM EDT TERRAZZO GRINDER FOUR BITEWING XRAYS Routine 3:30 PM EDT NEW PATIENT SPECIAL EXAM - ADULT Routine 06/25/2023 3:30 PM EDT TERRAZZO GRINDER CBCT Routine 06/25/2023 3:30 PM EDT FM BLEACH IN-OFFICE Routine 06/25/2023 2 :00 PM EDT Visit Diagnoses Not on file
--- OUTSIDE RECORDS SUMMARY | 2025-03-23 11:43 | XMS_ITS | Clinical Summary ---
Author Organization [facility] Address [address] [place] [address] Care Team Providers Care Teacher Instrumental Name Role Phone Harrison Quiros Primary Care Provider [phone] Source Comments [facility],non-owned Affiliates and Associated Physician Practices is amultiple site organization consisting of ambulatory clinics and hospital sitesin [place], [place], [place] and [place]. This disclosure is being madepursuant to the Care Everywhere program and may not contain all information available regarding this patient. Last updated 18.[facility] Allergies No known active allergies Medications * Be aware that medications may not be up to date on this document. Alwaysverify current medications with the patient. albuterol (PROVENTIL; VENTOLIN) 90 MCG/ACT inhaler Inhale 2 Puffs by mouth every 6 hours as needed. 1 Inhaler 3 0 Active hydroquinone (LUSTRA; ELDOQUIN) 4 % cream Apply to affected area twice daily. 30 g 2 9 Active tretinoin (RETIN-A) 0.025 % cream Pea sized amount to entire face at night. 30 days supply. 20 g 2 9 Active budesonide-formo terol (SYMBICORT) 160-4.5 MCG/ACT inhalerIndicatio ns:Encounter for medication refill,Asthma, unspecified asthma severity, unspecified whether complicated, unspecified whether persistent (HCC) Inhale 2 puffs by mouth 2 times daily 1 Inhaler 6 0 Active albuterol HFA (PROVENTIL;TURNER JENNY;PROAIR) 108 (90 Base) MCG/ACT inhalerIndicatio ns:Encounter for medication refill,Asthma, unspecified asthma severity, unspecified whether complicated, unspecified whether persistent (HCC) Inhale 2 puffs by mouth every 6 hours as needed 1 Inhaler 0 Active montelukast (SINGULAIR) 10 MG tabletIndication s:Encounter for medication refill,Asthma, unspecified asthma severity, unspecified whether complicated, unspecified whether persistent (HCC) Take 1 tablet by mouth at bedtime 30 tablet 6 0 Active clindamycin-venu oyl peroxide (DUAC) 1.2-5 % gelIndications:E ncounter for medication refill,Acne, unspecified acne type Apply to affected area of face daily. 30 days supply. 45 g 2 0 Active Family History Medical History Relation Name Comments Asthma Neg Hx CVA Neg Hx Cancer - Breast Neg Hx Cancer - Other Neg Hx Cancer - Skin, Melanoma Neg Hx Cancer - Skin, Non Melanoma Neg Hx Eczema Neg Hx Hemophilia Neg Hx Psoriasis Neg Hx Social History Tobacco Use Types Packs/Day Years Used Date Smoking Tobacco: Never Smokeless Tobacco: Never Alcohol Use Standard Drinks/Week Comments Yes 0 (1 standard drink = 0.6 oz pur e alcohol) Sex and Gender Information Value Date Recorded Sex Assigned at Not on file Legal Sex Male 5:37 AM ORTHODONTIC TREATMENT COORDINATOR Gender Identity Not on file Sexual Orientation Not on file Last Filed Vital Signs Vital Sign Reading Time Taken Comments Blood Pressure 138/80 01/31/2020 2:41 PM CDT Pulse 78 01/31/2020 2:41 PM CDT Temperature 36.8 C (98.3 F) 01/31/2020 2:41 PM CDT Respiratory Rate 18 01/31/2020 2:41 PM CDT Oxygen Saturation 96% 01/31/2020 2:41 PM CDT Inhaled Oxygen Concentration - - Weight 83.9 kg (185 lb) 01/31/2020 2:41 PM CDT Height 182.9 cm (6') 01/31/2020 2:41 PM CDT Body Mass Index 25.09 01/31/2020 2:41 PM CDT Plan of Treatment Health Maintenance Due Date Last Done Comments HIV SCREENING 2007 DTAP/TDAP/TD VACCINES (1 - Tdap) 2011 HEPATITIS B VACCINE (1 of 3 - 19+ 3-dose series) 2011 COVID-19 VACCINE (1 - 2023-2 5 season) 2024 DEPRESSION SCREENING 09/17/2024 INFLUENZA VACCINE (Season Ended) 2025 08/02/2017, 07/06/2015 ZOSTER VACCINE (1 of 2) 2042 HEPATITIS C SCREENING Completed 04/14/2019 HIB VACCINE Aged Out No longer eligi ble based on patient's age to complete this topic HPV VACCINE Aged Out No longer eligi ble based on patient's age to complete this topic MENINGOCOCCAL (Group B) VACCINE SHARED DECISION-MAKING Aged Out No longer eligible based on patient's age to complete this topic MENINGOCOCCAL GROUPS A/C/Y/W VACCINE Aged Out No longer eligible b ased on patient's age to complete this topic PNEUMOCOCCAL VACCINE Aged Out No long er eligible based on patient's age to complete this topic Insurance [facility] Care Teams Teacher Instrumental Relationship Specialty Start Date End Date Harrison Quiros [address] [place] [phone] PCP - General 06/21/10
--- OUTSIDE RECORDS SUMMARY | 2025-03-23 11:43 | XMS_ITS | Clinical Summary ---
Author Organization [facility] Address [address] [place] [address] Care Team Providers Care Family Coach Name Role Phone Aminta Wynne NP Primary Care Provider [phone] Allergies No known active allergies Medications albuterol [...] day as needed (cough, congestion) 20 tablet Active acetaminophen (TYLENOL) 500 mg tablet Take 2 tablets (1,000 mg total) by mouth every 6 (six) hours as needed for pain 30 tablet 4 Active Medical History Medical History Date Comments Asthma Social History Tobacco Use Types Packs/Day Years Used Date Smoking Tobacco: Never Assessed Personal Safety Answer Date Recorded Have you ever been in or are you currently in a harmful physical or emotional relationship or is someone making you feel afraid or unsafe? Denies 09/15/2024 Sex and Gender Information Value Date Recorded Sex Assigned at Not on file Legal Sex Male 3:32 PM CASINO SLOT SUPERVISOR Gender Identity Male 03/05/2021 1:46 AM CDT Sexual Orientation Straight 03/05/2021 1: 46 AM CDT Obstetrics History Last Filed Vital Signs Vital Sign Reading Time Taken Comments Blood Pressure 124/80 09/15/2024 7:52 AM CASINO SLOT SUPERVISOR Pulse 86 09/15/2024 7:52 AM CASINO SLOT SUPERVISOR Temperature 37 C (98.6 F) 09/15/2024 7:52 AM CASINO SLOT SUPERVISOR Respiratory Rate 18 09/15/2024 7:52 AM CASINO SLOT SUPERVISOR Oxygen Saturation 97% 09/15/2024 7:52 AM CASINO SLOT SUPERVISOR Inhaled Oxygen Concentration - - Weight 82.6 kg (182 lb) 03/06/2024 2:25 AM CDT Height 182.9 cm (6') 03/06/2024 2:25 AM CDT Body Mass Index 24.68 03/06/2024 2:25 AM CDT Plan of Treatment Health Maintenance Due Date Last Done Comments Depression Screening 1992 Hepatitis C Screening 1992 Varicella Vaccines (1 of 2 - 13+ 2-dose series) 2005 Regular Well Visit/Exam 18-64 2010 Pneumococcal vaccine <65 (1 of 2 - PCV) 2011 Covid-19 Vaccine ( season) 2024 09/26/2021, 06/16/2021 Influenza Vaccine (Season Ended) 2025 09/26/2021, 10/12/2020, 06/30/2019, Additional history exists DTaP/Tdap/Td Vaccine (7 - Td or Tdap) 08/02/2027 08/02/2017, 07/13/2008, 06/09/2003, Additional history exists Hepatitis B Screening Completed 07/17/1998 , 03/23/1998, 12/31/1997 HPV Vaccines Aged Out No longer eligi ble based on patient's age to complete this topic Insurance [facility] PLAN [facility] OTHER Address: [address] [place] [id number] [facility] CHOICE PLUS IDPA [facility] PLAN [place] [id number] Care Teams Family Coach Relationship Specialty Start Date End Date Aminta Wynne NP [address] [place] [id number] PCP - General 10/18/20
--- OUTSIDE RECORDS SUMMARY | 2025-03-23 11:43 | XMS_ITS | Clinical Summary ---
Author Organization [facility] Health Address [address] [place] [address] Care Team Providers Care It Support Engineer Name Role Phone Unavailable Primary Care Provider Unavailabl e Medications albuterol sulfate 2.5 mg/0.5 mL solution for nebulization 0.5 mL. Active albuterol 2.5 mg /3 mL (0.083 %) nebulizer solution USE 1 VIAL VIA NEBULIZER EVERY 4 HOURS NEEDED Active albuterol HFA (PROVENTIL HFA;VENTOLIN HFA) 90 mcg/actuation inhaler 2 puffs every 4 (four) hours if needed. 3 Active azelastine (ASTELIN) 137 mcg (0.1 %) nasal spray Administer 2 sprays into each nostril 1 (one) time each day. 3 Active clotrimazole (LOTRIMIN) 1 % cream APPLY TOPICALLY TO THE AFFECTED AND SURROUNDING AREAS TWICE DAILY IN THE MORNING AND IN THE EVENING 3 Active budesonide-glyco pyr-formoterol (Breztri Aerosphere) 160-9-4.8 mcg/actuation HFA aerosol inhaler Inhale 2 puffs in the morning and 2 puffs in the evening. 2 Active Symbicort 160-4.5 mcg/actuation inhaler Inhale 2 puffs in the morning and at bedtime. Active fluticasone propionate (FLONASE) 50 mcg/actuation nasal spray SHAKE LIQUID AND USE 2 SPRAYS IN EACH NOSTRIL EVERY DAY 3 Active montelukast (SINGULAIR) 10 mg tablet Take 10 mg by mouth 1 (one) time each day. Active Active Problems No known active problems Social History Tobacco Use Types Packs/Day Years Used Date Smoking Tobacco: Never Assessed Sex and Gender Information Value Date Recorded Sex Assigned at Not on file Legal Sex Male 8:30 AM PDT Gender Identity Not on file Sexual Orientation Not on file Plan of Treatment Health Maintenance Due Date Last Done Comments Dental Prophylaxis 1992 Dental X-Ray: Bitewings 1992 Dental Oral Exam 12/26/2023 06/25/2023 Dental CBCT 06/25/2026 06/25/2023 Dental X-Ray: Full Mouth 06/26/2026 06/25/2023 Dental X-Ray: Panoramic 06/26/2026 06/25/2023 Procedures Procedure Name Priority Date/Time Associated Diagnosis Comments 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
--- OUTSIDE RECORDS SUMMARY | 2025-03-23 11:43 | XMS_ITS | Data Portability ---
[facility] Organization [facility] Address [address] [place] [address] Care Team Providers Care Exhibit Preparator Name Role Phone AMINTA LEUNG Primary Care Provider [phone] Assessment No assessment recorded. Plan of Treatment Reminders Order Date Submit Date Provider Last Modified By Organization Details Last Modified Time Details Appointments None recorded . Lab TSH, ultra-se nsitive, serum 2024 025 SAVANNAH [facility], [address], [address], [place], [address], 5 08:25:35 CMP, serum or plasma 2024 025 SAVANNAH [facility], [address], [address], [place], [address], 5 03:08:26 lipid panel, serum 2024 025 SAVANNAH [facility], [address], [address], [place], [address], 5 03:08:25 CBC 2024 025 S[facility]ANNA[facility], [address], [address], [place], [address], 5 03:08:27 TSH, ultra-se nsitive, serum 2022 023 SAVANNAH [facility], [address], [address], [place], [address], 3 03:08:37 CMP, serum or plasma 2022 023 SAVANNAH [facility], [address], [address], [place], [address], 3 03:08:35 lipid panel, serum 2022 023 SAVANNAH [facility], [address], [address], [place], [address], 3 03:08:34 CBC 2022 023 SAVANNAH [facility], [address], [address], [place], [address], 3 03:08:35 Referral orthoped ic surgeon referral 2023 024 [email or web address] Ravi MD, [address] [place] [address], [address], 4 15:25:23 orthoped ic surgeon referral [address] [employer] (Dr Kelly), [address] [place], [address], 4 11:31:[address] referral [address], [address], [place], [address], 4 17:19:45 Procedures None recorded . Surgeries None recorded . Imaging None recorded . Medication Orders albutero l sulfate 2.5 mg/3 mL (0.083 %) solution for nebuliza tion 2024 025 SAVANNAH [facility][id number], [address], [place], [place], [id number], 5 12:09:39 albutero l sulfate HFA 90 mcg/actu ation aerosol inhaler 2024 025 [facility] #53417, [address], [place], [place], [id number], 5 12:09:39 monteluk ast 10 mg tablet 2024 025 [facility] #34340, [address], [place], [place], [id number], 5 12:09:40 Symbicor t 160 mcg-4.5 mcg/actu ation HFA aerosol inhaler 2024 025 [facility] #72205, [address], [place], [place], [id number], 5 12:09:39 fluticas one propiona te 50 mcg/actu ation nasal spray,busch spension 2024 025 [facility] #59192, [address], [place], [place], [id number], 5 12:10:50 ketocona zole 2 % topical cream [address] [facility] #66337, [address], [place], [place], [id number], 5 12:15:30 Spiriva Respimat 1.25 mcg/actu ation solution for inhalati on [email or web address] [facility] #72466, [address], [place], [place], [id number], 5 11:52:50 albutero l sulfate HFA 90 mcg/actu ation aerosol inhaler 2023 024 [facility] #83767, [address], [place], [place], [id number], 4 10:51:12 monteluk ast 10 mg tablet 2023 024 [facility] #58251, [address] [facility], [place], [place], [id number], 4 10:51:14 Symbicor t 160 mcg-4.5 mcg/actu ation HFA aerosol inhaler 2023 024 [facility] #13020, [address] [facility], [place], [place], [id number], 4 10:51:13 clotrima zole-bet amethaso ne 1 %-0.05 % topical cream 2022 023 [facility]56881, [address] [facility], [place], [place], [id number], 5 11:52:19 Spiriva Respimat 1.25 mcg/actu ation solution for inhalati on 2022 023 [facility] #92027, [address] [facility], [place], [place], [id number], 5 11:52:50 albutero l sulfate HFA 90 mcg/actu ation aerosol inhaler 2022 023 [facility] #65643, [address] [facility], [place], [place], [id number], 3 10:48:41 monteluk ast 10 mg tablet 2022 023 [facility] #77276, [address] [facility], [place], [place], [id number], 3 10:48:56 Symbicor t 160 mcg-4.5 mcg/actu ation HFA aerosol inhaler 2022 023 [facility]75, [address] [facility], [place], [place], [id number], 10:48:53 Patient TargetsNo targets recorded. Patient Instructions Encounter Date Encounter Id Patient Instructions Last Modified By Organization Details Last Modified Time 05/07/2023 [id number] When You Want to Lose Weight: Care Instructions Not available 05/07/2023 10:48:33 Increase intake of fresh fruits, vegetables, lean protein and whole grains. Avoid packaged foods and fast foods. Drink at least 10- 8oz glasses of water per day. Increase activity level to build up to at least 30 minutes most days of the week. Not available 05/07/2023 10:48:04 f/u 6 months DWP barriers to care: none Not available 05/07/2023 10:48:09 10/29/2023 [id number] When You Want to Lose Weight: Care Instructions Not available 10/29/2023 10:51:03 insomnia: care instructions Not available 10/29/2023 10:51:03 Increase intake of fresh fruits, vegetables, lean protein and whole grains. Avoid packaged foods and fast foods. Drink at least 10- 8oz glasses of water per day. Increase activity level to build up to at least 30 minutes most days of the week. Not available 10/29/2023 10:40:50 f/u 6 months DWP barriers to care: none Not available 10/29/2023 10:51:11 03/10/2024 [id number] Rest To rest the ankle, you can use crutches and stay off your feet. Ice Apply a cold gel pack, bag of ice, or bag of frozen vegetables on your ankle every 1 to 2 hours, for 15 minutes each time. Put a thin towel between the ice (or other cold object) and your skin. Use the ice (or other cold object) for at least 6 hours after your injury. Some people find it helpful to ice longer, even up to 2 days after their injury. Compression Compression basically means pressure. You want to have your ankle under slight pressure by having it wrapped in an elastic compression bandage. This helps reduce swelling and supports the ankle. Your doctor or nurse will show you how to wrap your ankle. It's important that you do not use too much pressure and cut off the blood flow to your foot. Elevation Elevation means you should keep your foot raised up above the level of your heart. To do this, you can put your foot on some pillows or blankets while you are lying down, or on a table or chair while you are sitting. Not available 03/10/2024 17:01:15 keep f/u as planned Not available 03/10/2024 17:01:02 03/11/2024 [id number] athlete's foot: care instructions fharry Not available 03/11/2024 16:48:54 12/02/2024 [id number] learning about asthma Not available 12/02/2024 12:09:33 A healthy lifestyle: care instructions [facility] Not available 12/02/2024 12:09:33 seasonal allergies: care instructions [facility] Not available 12/02/2024 12:10:34 Increase intake of fresh fruits, and vegetables. Avoid packaged foods and fast foods. Follow a low salt diet, drink at least 8-10 8oz glasses of water a day, exercise most days of the week. Take all medications as prescribed. Keep appointments with PCP and all specialists. Not available 12/02/2024 12:11:03 follow up in 6 months Not available 12/02/2024 12:11:06 Reason for Referral Orthopedic Surgeon Referral for Injury of Achilles tendon Referring Physician: [facility], Encounter Date: 03/10/2024 [employer] Referral for Inju ry of Achilles tendon Referring Physician: [facility], Encounter Date: 03/10/2024 Orthopedic Surgeon Referral for Rupture of left Achilles tendon Referring Physician: Jean-Claude Rich [facility], Encounter Date: 03/11/2024 Results Created Date Observation Date Name Description Value Unit Range Abnormal Flag Note LastModifiedBy Organization Detail LastModifiedTime 05/07/20 23 05/07/2023 LIPID PANEL cholesterol, total 139 mg/dL 100-19 9 Not Available [facility] Him Department [address] [place], [address], 05/08/2023 03:08:34 05/07/20 23 05/07/2023 LIPID PANEL triglyceride s 64 mg/dL 0-149 Not Available [facility] Department [address] [place], [address], 05/08/2023 03:08:34 05/07/20 23 05/07/2023 LIPID PANEL HDL cholesterol 45 mg/dL 40-[address] [facility] Department [address] [place], [address], 05/08/2023 03:08:34 05/07/20 23 05/07/2023 LIPID PANEL VLDL cholesterol karen 13 mg/dL 5-40 Not Available [facility] Department [address] [place] [address], [address], 05/08/2023 03:08:34 05/07/20 23 05/07/2023 LIPID PANEL LDL chol calc (nih) 89 mg/dL 0-99 Not Available [facility] Department [address] [place], [address], 05/08/2023 03:08:34 05/07/20 23 05/07/2023 COMP. METAB OLIC PANEL (14) glucose 98 mg/dL 70-99 Not Available [facility] Department [address] [place], [address], 05/08/2023 03:08:35 05/07/20 23 05/07/2023 COMP. METAB OLIC PANEL (14) BUN 13 mg/dL 6-20 Not Available [facility] Department [address] [place], [address], 05/08/2023 03:08:35 05/07/20 23 05/07/2023 COMP. METAB OLIC PANEL (14) creatinine 1.24 mg/dL 0.76-1 .27 Not Available [facility] Department [address] [place] [address], [address], 05/08/2023 03:08:35 05/07/20 23 05/07/2023 COMP. METAB OLIC PANEL (14) eGFR 80 >=60 Units for eGFR value s are mL/mi n/1.7 3 The eGFR Calcu latio n has not been valid ated for patie nts under the age of 18. If test resul ts are displ ayed for a patie nt under the age of 18, disre alice that value . Not Available [facility] Department [address] [place] [address], [address], 05/08/2023 03:08:35 05/07/20 23 05/07/2023 COMP. METAB OLIC PANEL (14) BUN/creatini ne ratio 11 9-20 Not Available [facility] Department [address] [place] [address], [address], 05/08/2023 03:08:35 05/07/20 23 05/07/2023 COMP. METAB OLIC PANEL (14) sodium 143 mmol/ L 134-14 4 Not Available [facility] Department [address] [place] [address], [address], 05/08/2023 03:08:35 05/07/20 23 05/07/2023 COMP. METAB OLIC PANEL (14) potassium 3.8 mmol/ L 3.5-5. 2 Not Available [facility] Department [address] [place] [address], [address], 05/08/2023 03:08:35 05/07/20 23 05/07/2023 COMP. METAB OLIC PANEL (14) chloride 106 mmol/ L 96-106 Not Available [facility] Department [address] [place] [address], [address], 05/08/2023 03:08:35 05/07/20 23 05/07/2023 COMP. METAB OLIC PANEL (14) carbon dioxide, total 24 mmol/ L 20-29 Not Available [facility] Department [address] [place], [address], 05/08/2023 03:08:35 05/07/20 23 05/07/2023 COMP. METAB OLIC PANEL (14) calcium 9.5 mg/dL 8.7-10 .2 Not Available [facility] Department [address] [place], [address], 05/08/2023 03:08:35 05/07/20 23 05/07/2023 COMP. METAB OLIC PANEL (14) protein, total 7.1 g/dL 6.0-8. 5 Not Available [facility] Department [address] [place], [address], 05/08/2023 03:08:35 05/07/20 23 05/07/2023 COMP. METAB OLIC PANEL (14) albumin 4.6 g/dL 4.1-5. 1 Not Available [facility] Department [address] [place], [address], 05/08/2023 03:08:35 05/07/20 23 05/07/2023 COMP. METAB OLIC PANEL (14) globulin, total 2.5 g/dL 1.5-4. 5 Not Available [facility] Department [address] [place], [address], 05/08/2023 03:08:35 05/07/20 23 05/07/2023 COMP. METAB OLIC PANEL (14) A/G ratio 2.0 1.2-2. 2 Not Available [facility] Department [address] [place], [address], 05/08/2023 03:08:35 05/07/20 23 05/07/2023 COMP. METAB OLIC PANEL (14) bilirubin, total 0.6 mg/dL 0.0-1. 2 Not Available [facility] Department [address] [place], [address], 05/08/2023 03:08:35 05/07/20 23 05/07/2023 COMP. METAB OLIC PANEL (14) alkaline phosphatase 86 IU/L 44-[address] [facility] Department [address] [place], [address], 05/08/2023 03:08:35 05/07/20 23 05/07/2023 COMP. METAB OLIC PANEL (14) AST (SGOT) 20 IU/L 0-40 Not Available [facility] Department [address] [place] [address], [address], 05/08/2023 03:08:35 05/07/20 23 05/07/2023 COMP. METAB OLIC PANEL (14) ALT (SGPT) 21 IU/L 0-44 Not Available [facility] Department [address] [place] [address], [address], 05/08/2023 03:08:35 05/07/20 23 05/07/2023 CBC, NO DIFFE RENTI AL/PL ATELE T WBC 5.1 x10e3 /uL 3.4-10 .8 Not Available [facility] Department [address] [place], [address], 05/08/2023 03:08:35 05/07/20 23 05/07/2023 CBC, NO DIFFE RENTI AL/PL ATELE T RBC 5.13 x10e6 /uL 4.14-5 .80 Not Available [facility] Department [address] [place], [address], 05/08/2023 03:08:35 05/07/20 23 05/07/2023 CBC, NO DIFFE RENTI AL/PL ATELE T hemoglobin 13.6 g/dL 13.0-1 7.7 Not Available [facility] Department [address] [place] [address], [address], 05/08/2023 03:08:35 05/07/20 23 05/07/2023 CBC, NO DIFFE RENTI AL/PL ATELE T hematocrit 44.8 % 37.5-5 1.0 Not Available [facility] Department [address] [place] [address], [address], 05/08/2023 03:08:35 05/07/20 23 05/07/2023 CBC, NO DIFFE RENTI AL/PL ATELE T MCV 87 fL 79-97 Not Available [facility] Department [address] [place], [address], 05/08/2023 03:08:35 05/07/20 23 05/07/2023 CBC, NO DIFFE RENTI AL/PL ATELE T MCH 26.5 pg 26.6-3 3.0 below low normal Not Available [facility] Department [address] [place], [address], 05/08/2023 03:08:35 05/07/20 23 05/07/2023 CBC, NO DIFFE RENTI AL/PL ATELE T MCHC 30.4 g/dL 31.5-3 5.7 below low normal Not Available [facility] Department [address] [place] [address], [address], 05/08/2023 03:08:35 05/07/20 23 05/07/2023 CBC, NO DIFFE RENTI AL/PL ATELE T RDW 13.0 % 11.5-1 4.5 Not Available [facility] Department [address] [place], [address], 05/08/2023 03:08:35 05/07/20 23 05/07/2023 CBC, NO DIFFE RENTI AL/PL ATELE T NRBC 0 % 0-0 Not Available [facility] Department [address] [place] [address], [address], 05/08/2023 03:08:35 05/07/20 23 05/08/2023 TSH RFX ON ABNOR MAL TO FREE T4 TSH 0.723 uIU/m L 0.450- 4.500 Not Available [facility] ([facility]) [address] [facility], [place], [address], 05/08/2023 03:08:37 12/03/19 25 12/03/2024 LIPID PANEL cholesterol, total 164 mg/dL 100-19 9 Not Available [facility] Department [address] [place] [address], [address], 12/03/2024 03:08:25 12/03/19 25 12/03/2024 LIPID PANEL triglyceride s 128 mg/dL 0-149 Not Available [facility] Department [address] [place] [address], [address], 12/03/2024 03:08:25 12/03/19 25 12/03/2024 LIPID PANEL HDL cholesterol 47 mg/dL 40-[address] [facility] Department [address] [place] [address], [address], 12/03/2024 03:08:25 12/03/19 25 12/03/2024 LIPID PANEL VLDL cholesterol karen 26 mg/dL 5-40 Not Available [facility] Department [address] [place], [address], 12/03/2024 03:08:25 12/03/19 25 12/03/2024 LIPID PANEL LDL chol calc (nih) 109 mg/dL 0-99 above high normal Not Available [facility] Department [address] [place], [address], 12/03/2024 03:08:25 12/03/19 25 12/03/2024 COMP. METAB OLIC PANEL (14) glucose 80 mg/dL 70-99 Not Available [facility] Department [address] [place], [address], 12/03/2024 03:08:26 12/03/19 25 12/03/2024 COMP. METAB OLIC PANEL (14) BUN 23 mg/dL 6-20 above high normal Not Available [facility] Department [address] [place], [address], 12/03/2024 03:08:26 12/03/19 25 12/03/2024 COMP. METAB OLIC PANEL (14) creatinine 1.52 mg/dL 0.76-1 .27 above high normal Not Available [facility] Department [address] [place] [address], [address], 12/03/2024 03:08:26 12/03/19 25 12/03/2024 COMP. METAB OLIC PANEL (14) eGFR 62 >=60 Units for eGFR value s are mL/mi n/1.7 3 The eGFR Calcu latio n has not been valid ated for patie nts under the age of 18. If test resul ts are displ ayed for a patie nt under the age of 18, disre alice that value . Not Available [facility] Department [address] [place] [address], [address], 12/03/2024 03:08:26 12/03/19 25 12/03/2024 COMP. METAB OLIC PANEL (14) BUN/creatini ne ratio 15 9-20 Not Available [facility] Department [address] [place] [address], [address], 12/03/2024 03:08:26 12/03/19 25 12/03/2024 COMP. METAB OLIC PANEL (14) sodium 142 mmol/ L 134-14 4 Not Available [facility] Department [address] [place] [address], [address], 12/03/2024 03:08:26 12/03/19 25 12/03/2024 COMP. METAB OLIC PANEL (14) potassium 4.5 mmol/ L 3.5-5. 2 Not Available [facility] Department [address] [place] [address], [address], 12/03/2024 03:08:26 12/03/19 25 12/03/2024 COMP. METAB OLIC PANEL (14) chloride 105 mmol/ L 96-106 Not Available [facility] Department [address] [place], [address], 12/03/2024 03:08:26 12/03/19 25 12/03/2024 COMP. METAB OLIC PANEL (14) carbon dioxide, total 22 mmol/ L Not Available [facility] Department [address] [place], [address], 12/03/2024 03:08:26 12/03/19 25 12/03/2024 COMP. METAB OLIC PANEL (14) calcium 9.2 mg/dL 8.7-10 .2 Not Available [facility] Department [address] [place] [address], [address], 12/03/2024 03:08:26 12/03/19 25 12/03/2024 COMP. METAB OLIC PANEL (14) protein, total 7.0 g/dL 6.0-8. 5 Not Available [facility] Department [address] [place] [address], [address], 12/03/2024 03:08:26 12/03/19 25 12/03/2024 COMP. METAB OLIC PANEL (14) albumin 4.4 g/dL 4.1-5. 1 Not Available [facility] Department [address] [place], [address], 12/03/2024 03:08:26 12/03/19 25 12/03/2024 COMP. METAB OLIC PANEL (14) globulin, total 2.6 g/dL 1.5-4. 5 Not Available [facility] Department [address] [place], [address], 12/03/2024 03:08:26 12/03/19 25 12/03/2024 COMP. METAB OLIC PANEL (14) A/G ratio 1.7 1.2-2. 2 Not Available [facility] Department [address] [place] [address], [address], 12/03/2024 03:08:26 12/03/19 25 12/03/2024 COMP. METAB OLIC PANEL (14) bilirubin, total 0.3 mg/dL 0.0-1. 2 Not Available [facility] Department [address] [place] [address], [address], 12/03/2024 03:08:26 12/03/19 25 12/03/2024 COMP. METAB OLIC PANEL (14) alkaline phosphatase 97 IU/L 44-[address] [facility] Department [address] [place] [address], [address], 12/03/2024 03:08:26 12/03/19 25 12/03/2024 COMP. METAB OLIC PANEL (14) AST (SGOT) 19 U/L 0-40 Not Available [facility] Department [address] [place] [address], [address], 12/03/2024 03:08:26 12/03/19 25 12/03/2024 COMP. METAB OLIC PANEL (14) ALT (SGPT) 20 IU/L 0-44 Not Available [facility] Department [address] [place] [address], [address], 12/03/2024 03:08:26 12/03/19 25 12/03/2024 CBC, PLATE LET, NO DIFFE RENTI AL WBC 6.2 x10e3 /uL 3.4-10 .8 Not Available [facility] Department [address] [place] [address], [address], 12/03/2024 03:08:27 12/03/19 25 12/03/2024 CBC, PLATE LET, NO DIFFE RENTI AL RBC 4.99 x10e6 /uL 4.14-5 .80 Not Available [facility] Department [address] [place] [address], [address], 12/03/2024 03:08:27 12/03/19 25 12/03/2024 CBC, PLATE LET, NO DIFFE RENTI AL hemoglobin 13.4 g/dL 13.0-1 7.7 Not Available [facility] Department [address] [place], [address], 12/03/2024 03:08:27 12/03/1912/03/2024 CBC, PLATE LET, NO DIFFE RENTI AL hematocrit 44.8 % 37.5-5 1.0 Not Available [facility] Department [address] [place], [address], 12/03/2024 03:08:27 12/03/1912/03/2024 CBC, PLATE LET, NO DIFFE RENTI AL MCV 90 fL 79-97 Not Available [facility] Department [address] [place], [address], 12/03/2024 03:08:27 12/03/1912/03/2024 CBC, PLATE LET, NO DIFFE RENTI AL MCH 26.9 pg 26.6-3 3.0 Not Available [facility] Department [address] [place], [address], 12/03/2024 03:08:27 12/03/1912/03/2024 CBC, PLATE LET, NO DIFFE RENTI AL MCHC 29.9 g/dL 31.5-3 5.7 below low normal Not Available [facility] Department [address] [place], [address], 12/03/2024 03:08:27 12/03/1912/03/2024 CBC, PLATE LET, NO DIFFE RENTI AL RDW 13.6 % 11.5-1 4.5 Not Available [facility] Department [address] [place], [address], 12/03/2024 03:08:27 12/03/1912/03/2024 CBC, PLATE LET, NO DIFFE RENTI AL platelets 221 x10e3 /uL 150-45 0 Mean Plate let Volum e 11.0 fL 8.9-1 2.7 N Not Available [facility] Department [address] [place], [address], 12/03/2024 03:08:27 12/03/19 25 12/03/2024 CBC, PLATE LET, NO DIFFE ELIANE AL NRBC 0 % 0-0 Not Available [facility] Him Department [address], [place], [address], 12/03/2024 03:08:27 12/03/19 25 12/03/2024 TSH RFX ON ABNOR MAL TO FREE T4 TSH 1.430 uIU/m L 0.450- 4.500 Not Available [facility] ([facility]) [address] [facility], [place], [address], 12/03/2024 08:25:35 Result Notes None recorded. Problems Name Problem SNOMED Code Status Onset Date Resolution Date Notes Provider Name and Address Organization Details Recorded Time Overweight 152089341 Active 2021 Not Available [facility] 3 09:21:27 Primary insomnia 1828411 Active 2023 Aminta Leung APN, MANAGER [employer] Attn: Accounting ,[address] [facility], [place], [address] , [facility] 4 10:50:52 Asthma 200327862 Active Not Available [facility] 3 09:21:27 Increased blood pressure 34409637 Active Not Available [facility] 3 09:21:27 Problem Notes None recorded. Procedures Surgical History Date Name Laterality Status Provider Name and Address Organization Details Recorded Time 4 repair of tendo achilles completed AVANI [place] [facility] [place] 12/02/2024 11:54:40 Imaging Results None recorded. Procedure Notes None recorded. Medical Equipment None Reported. Allergies No known drug allergies Medications Name Sig Start Date Stop Date Status Note LastModified by Organization Details LastModified Time ventolin hfa 108 mcg/act aers 02/15 completed Not Available Not Available Not Available symbicort aer 160-4.5 02/15 completed Not Available Not Available Not Available monteluka st sodium 10 mg tabs 02/15 completed Not Available Not Available Not Available fluticaso ne propionat e 50 mcg/act susp 02/15 completed Not Available Not Available Not Available tretinoin 0.05 % crea 02/15 completed Not Available Not Available Not Available prednison e 10 mg tabs 02/15 completed Not Available Not Available Not Available benzonata te 100 mg caps 02/15 completed Not Available Not Available Not Available albuterol sulfate hfa 108 mcg/act aers 05/07 completed Not Available Not Available Not Available clindamy/ iassatou gel 1.2-5% 02/15 completed Not Available Not Available Not Available albuterol sulfate 0.083 % nebu 05/07 completed Not Available Not Available Not Available metronida zole 500 mg tabs 02/15 completed Not Available Not Available Not Available prednison e 20 mg tabs 02/15 completed Not Available Not Available Not Available azelaic acid 15 % gel 02/15 completed Not Available Not Available Not Available promethaz ine-DM 6.25 mg-15 mg/5 mL oral syrup 02/15 completed Not Available Not Available Not Available prednison e 10 mg tablet 4 for 4 days 2 for 4 days 1 for 4 days 1/2 for 4 days 02/15 completed Not Available Not Available Not Available ipratropi um 0.5 mg-albute rol 3 mg (2.5 mg base)/3 mL nebulizat ion soln USE 3 ML VIA NEBULIZE R FOUR TIMES DAILY NEEDED 07/20 completed Not Available Not Available Not Available tretinoin 0.01 % topical gel APPLY TO THE AFFECTED AREA(S) BY TOPICAL ROUTE ONCE DAILY AT BEDTIME 08/02 completed Not Available Not Available Not Available albuterol sulfate 2.5 mg/3 mL (0.083 %) solution for nebulizat ion USE 3 ML VIA NEBULIZE R EVERY 4 HOURS NEEDED active Not Available Not Available No t Available azithromy alejandrina 250 mg tablet TAKE 2 TABLETS (500 MG) BY ORAL ROUTE ONCE DAILY FOR 1 DAY THEN 1 TABLET (250 MG) BY ORAL ROUTE ONCE DAILY FOR 4 DAYS 09/22 completed Not Available Not Available Not Available ibuprofen 800 mg tablet TAKE 1 TABLET BY MOUTH THREE TIMES A DAY NEEDED WITH FOOD 12/02 completed Not Available Not Available Not Available benzonata te 200 mg capsule 04/20 completed Not Available Not Available Not Available valacyclo vir 1 gram tablet TAKE 1 TABLET BY MOUTH TWICE DAILY 07/20 completed not taking Not Available Not Available Not Available hydrocodo ne 5 mg-acetam inophen 325 mg tablet TAKE 1 TABLET BY MOUTH EVERY 6 HOURS NEEDED FOR ACUTE PAIN 12/02 completed Not Available Not Available Not Available fluconazo le 200 mg tablet TAKE 1 TABLET BY MOUTH DAILY 07/20 completed Not Available Not Available Not Available hydroquin one 4 % topical cream 04/20 completed Not Available Not Available Not Available ondansetr on HCl 4 mg tablet 12/02 completed Not Available Not Available Not Available prednison e 20 mg tablet TAKE 1 TABLET BY MOUTH DAILY 07/20 completed Not Available Not Available Not Available sulfameth oxazole 800 mg-trimet hoprim 160 mg tablet TAKE 1 TABLET BY MOUTH EVERY 12 HOURS 07/20 completed Not Available Not Available Not Available tramadol 50 mg tablet 12/02 completed Not Available Not Available Not Available acetamino phen 500 mg tablet TAKE 2 TABLETS BY MOUTH EVERY 6 HOURS NEEDED FOR PAIN 12/02 completed Not Available Not Available Not Available prednison e 10 mg tablets in a dose pack 07/11 completed Not Available Not Available Not Available aspirin 325 mg tablet,de layed release 12/02 completed Not Available Not Available Not Available tamsulosi n 0.4 mg capsule active Not Available Not Available Not Available ciproflox acin 0.3 % eye drops 04/20 completed Not Available Not Available Not Available cephalexi n 500 mg capsule TAKE 1 CAPSULE BY MOUTH EVERY 8 HOURS 12/02 completed Not Available Not Available Not Available clotrimaz ole-betam ethasone 1 %-0.05 % topical cream Apply 1 applicat ion twice a day by topical route for 14 days. 12/02 completed Not Available Not Available Not Available prednison e 50 mg tablet TAKE 1 TABLET BY MOUTH DAILY 12/02 completed Not Available Not Available Not Available betametha sone dipropion ate 0.05 % topical cream APPLY A THIN LAYER TO THE AFFECTED AREA(S) BY TOPICAL ROUTE ONCE DAILY 12/02 completed Not Available Not Available Not Available docusate sodium 100 mg capsule 12/02 completed Not Available Not Available Not Available monteluka st 10 mg tablet TAKE 1 TABLET BY MOUTH DAILY active Not Available Not Available No t Available mupirocin 2 % topical ointment APPLY TOPICALL Y TO THE AFFECTED AREA TWICE DAILY 12/02 completed Not Available Not Available Not Available azelastin e 137 mcg (0.1 %) nasal spray USE 2 SPRAYS IN EACH NOSTRIL EVERY DAY active Not Available Not Available No t Available ibuprofen 600 mg tablet 12/02 completed Not Available Not Available Not Available levofloxa alejandrina 750 mg tablet 04/20 completed Not Available Not Available Not Available methylpre dnisolone 4 mg tablets in a dose pack Take 1 dose pk by oral route. 04/20 completed Not Available Not Available Not Available albuterol sulfate HFA 90 mcg/actua tion aerosol inhaler INHALE 2 PUFFS BY MOUTH EVERY 4 TO 6 HOURS NEEDED active Not Available Not Available No t Available ketoconaz ole 2 % topical cream APPLY TOPICALL Y TO THE AFFECTED AREA DAILY active Not Available Not Available No t Available ondansetr on 4 mg disintegr ating tablet 07/20 completed prn Not Available Not Available Not Available fluticaso ne propionat e 50 mcg/actua tion nasal spray,ashley pension SHAKE LIQUID AND USE 1 SPRAY IN EACH NOSTRIL TWICE DAILY active Not Available Not Available No t Available clotrimaz ole 1 % topical cream APPLY TOPICALL Y TO THE AFFECTED AND SURROUND ING AREAS TWICE DAILY IN THE MORNING AND IN THE EVENING 12/02 completed Not Available Not Available Not Available amoxicill in 875 mg-potass ium clavulana te 125 mg tablet 12/02 completed Not Available Not Available Not Available Spiriva with HandiHale r 18 mcg and inhalatio n capsules INHALE 1 CAPSULE BY MOUTH USING HANDINHA LER EVERY DAY 04/20 completed Not Available Not Available Not Available albuterol sulfate concentra te 2.5 mg/0.5 mL solution for nebulizat ion Inhale 0.5 mL 3 times a day by nebuliza tion route as needed. 07/10 completed Not Available Not Available Not Available Symbicort 160 mcg-4.5 mcg/actua tion HFA aerosol inhaler INHALE 2 PUFFS BY MOUTH TWICE DAILY active Not Available Not Available No t Available Incruse Ellipta 62.5 mcg/actua tion powder for inhalatio n INHALE 1 PUFF BY MOUTH EVERY DAY 12/02 completed Not Available Not Available Not Available Spiriva Respimat 1.25 mcg/actua tion solution for inhalatio n Inhale 2 puffs every day by inhalati on route. 12/02 completed Not Available Not Available Not Available Qvar RediHaler 80 mcg/actua tion HFA breath activated aerosol one puff bid 03/17 completed pt already picked up Symbicor t Not Available Not Available Not Available Nucala 100 mg/mL subcutane ous syringe 05/07 completed Not Available Not Available Not Available Breztri Aerospher e 160 mcg-9mcg- 4.8mcg/ac tuation HFA aerosol inhaler 07/20 completed Not Available Not Available Not Available Vitals Date Recorded Body height Body mass index (BMI) Body weight Oxygen saturation Oxygen saturation in Arterial blood by Pulse oximetry Heart rate Body temperature Respiratory rate Systolic And Diastolic Provider Name and Address Organization Details Last Updated DateTime 4 177.8 cm 28.3 kg/m2 05641.1 3 g 98 % 98 % 95 /min 97.7 [degF] 16 /min 120/88 mm[Hg] Nadia Colunga [place] - [facility] 4 10:38:33 Date Recorded Body height Body mass index (BMI) Body weight Oxygen saturation Oxygen saturation in Arterial blood by Pulse oximetry Respiratory rate Body temperature Heart rate Systolic And Diastolic Provider Name and Address Organization Details Last Updated DateTime 5 177.8 cm 28.6 kg/m2 39141.8 8 g 95 % 95 % 16 /min 98 [degF] 92 /min 130/84 mm[Hg] AVANI Goodman [place] - [facility] 5 11:56:01 Date Recorded Body height Body mass index (BMI) Body weight Oxygen saturation Oxygen saturation in Arterial blood by Pulse oximetry Heart rate Body temperature Systolic And Diastolic Provider Name and Address Organization Details Last Updated DateTime 4 177.8 cm 26.8 kg/m2 05910.6 3 g 96 % 96 % 82 /min 97.8 [degF] 114/67 mm[Hg] Mercedes Durand MA [facility] 4 16:23:52 Date Recorded Body height Body mass index (BMI) Body weight Body temperature Heart rate Systolic And Diastolic Provider Name and Address Organization Details Last Updated DateTime 4 177.8 cm 26.7 kg/m2 66621.5 4 g 98.3 [degF] 86 /min 120/79 mm[Hg] Bibi Seymour MA [facility] 4 10:52:35 Date Recorded Body height Body mass index (BMI) Body weight Oxygen saturation Oxygen saturation in Arterial blood by Pulse oximetry Heart rate Respiratory rate Body temperature Systolic And Diastolic Provider Name and Address Organization Details Last Updated DateTime 3 177.8 cm 28 kg/m2 29918.5 1 g 97 % 97 % 98 /min 16 /min 97.7 [degF] 134/76 mm[Hg] Etta Davidte [facility] 3 10:36:22 Social History Question Answer Notes LastModified by Organizat ion Details LastModified Time Tobacco Smoking Status Never Smoker Lottie Urbano [place], [facility] 07/06/2015 20:01:46 Do You Have An Advance Directive? No Information n ot available 02/16/2020 Are You Blind Or Do You Have Difficulty Seeing? No Information n ot available 11/29/2020 What Is Your Level Of Caffeine Consumption? Moderate Information not available 11/29/2020 How Much Tobacco Do You Chew? None Information not available 02/16/2020 In The 14 Days Before Symptom Onset, Have You Had Close Contact With A Laboratory-confirm ed COVID-19 While That Case Was Ill? No Information n ot available 02/16/2020 In The 14 Days Before Symptom Onset, Have You Had Close Contact With A Person Who Is Under Investigation For COVID-19 While That Person Was Ill? No Information not available 02/16/2020 Have You Been To An Area Known To Be High Risk For COVID-19? No Information not available 02/16/2020 Are You Deaf Or Do You Have Serious Difficulty Hearing? No Information not available 11/29/2020 What Type Of Diet Are You Following? REGULAR Information n ot available 02/16/2020 Which Illicit Or Recreational Drugs Have You Used? Denied Information not available 02/16/2020 Education 12 Information no t available 02/16/2020 Are There Any Guns Present In Your Home? No Information not available 02/16/2020 Hard Of Hearing Or Deaf In One Or Both Ears? No Information not available 02/16/2020 Legally Blind In One Or Both Eyes? No Information no t available 02/16/2020 Marital Status Single Informatio n not available 02/16/2020 What Was The Date Of Your Most Recent Tobacco Screening? 12/02/2024 Information not available 12/02/2024 How Many Children Do You Have? 2 Information not available 11/29/2020 Do You Use Protection During Sex? Usually Information not available 11/29/2020 What Is Your Relationship Status? Single Information not available 11/29/2020 Do You Use Your Seat Belt Or Car Seat Routinely? Yes Information not available 11/29/2020 Seat Belts Used Routinely Yes Information not available 02/16/2020 Are You Sexually Active? Yes Information not available 11/29/2020 Smoke Alarm In Home Yes Information not available 02/16/2020 Do You Have Smoke And Carbon Monoxide Detectors In Your Home? Yes Information not available 11/29/2020 Are You Passively Exposed To Smoke? No Information no t available 11/29/2020 How Much Tobacco Do You Smoke? No Information not available 02/16/2020 General Stress Level Low Information not available 04/20/2020 Do You Use Sunscreen Routinely? Yes Information not available 02/16/2020 Has Tobacco Cessation Counseling Been Provided? Yes [email or web address] Information not available 05/07/2023 On What Date Was Tobacco Cessation Counseling Provided? 12/02/2024 Information not available 12/02/2024 How Many Years Have You Smoked Tobacco? 0 Information not available 02/16/2020 Sex: Male Functional Status Question Answer Note LastModified by Organizat ion Details LastModified Time Do you use any illicit or recreational drugs? No Information not available 11/29/2020 Do you or have you ever used any other forms of tobacco or nicotine? No Information not available 07/20/2022 What is your level of alcohol consumption? Occasional Information not available 02/16/2020 Do you or have you ever used smokeless tobacco? Never used smokeless tobacco Information not available 02/16/2020 Are you currently employed? Yes [email or web address] Information not available 05/07/2023 Are you able to care for yourself? 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 Never used electronic cigarettes Information not available 02/16/2020 What is your exercise level? Occasional Information not available 11/29/2020 Mental Status Question Answer Note LastModified by Organization D etails LastModified Time Do you feel stressed (tense, restless, nervous, or anxious, or unable to sleep at night)? [id number] [email or web address] Information not available 05/07/2023 Family History Relationship Description Onset Age of this Age Resolved Age Notes LastModified by Organization Details LastModified Time Father No current problems or disability Not available 02/15 15:49:52 Mother No current problems or disability Not available 02/15 15:49:52 Medical History Condition Response Coronary Artery Disease N Atrial Fibrillation N High Blood Pressure N Thyroid Problems N Kidney or Bladder Problems N Depression N COPD N Blood Clots N GI Problems N Skin Problems N Eating Disorder N Anemia N Heart Attack (IA) N Diabetes N Anxiety Disorder N Muscle, Joint, or Bone Problems N Seizures/Epilepsy N Acid Reflux (GERD) N Cancer N Stroke N Allergies Y Asthma Y Substance Abuse N High Cholesterol N Hepatitis N Liver Disease N Headaches N Heart Failure N Immunizations Vaccine Type Date Status Note Provider Nam e and Address Organization Details Recorded Time Influenza, split virus, quadrivalent, preservative 9 completed Not Available [facility] 06/21/2023 09:21:27 Influenza, split virus, quadrivalent, preservative 1 completed Not Available [facility] 06/21/2023 09:21:27 COVID-19, mRNA, LNP-S, PF, 100 mcg/0.5mL dose or 50 mcg/0.25mL dose 2 completed Not Available [facility] 06/21/2023 09:21:28 MMR 5 completed Not Available [facility] 06/21/2023 09:21:28 Td (adult), 2 Lf tetanus toxoid, preservative free, adsorbed 3 completed Not Available [facility] 06/21/2023 09:21:28 MMR 3 completed Not Available [facility] 06/21/2023 09:21:28 Hep B, adolescent or pediatric 8 completed Not Available [facility] 06/21/2023 09:21:28 DTP 4 completed Not Available [facility] 06/21/2023 09:21:28 Influenza, MDCK, quadrivalent, PF 2 completed Not Available [facility] 06/21/2023 09:21:28 Hep B, adolescent or pediatric 8 completed Not Available [facility] 06/21/2023 09:21:28 OPV 3 completed Not Available [facility] 06/21/2023 09:21:28 Hib, unspecified formulation 4 completed Not Available [facility] 06/21/2023 09:21:28 OPV 4 completed Not Available [facility] 06/21/2023 09:21:28 OPV 2 completed Not Available [facility] 06/21/2023 09:21:28 meningococcal C conjugate 8 completed Not Available [facility] 06/21/2023 09:21:28 Hib, unspecified formulation 3 completed Not Available [facility] 06/21/2023 09:21:28 DTP 2 completed Not Available [facility] 06/21/2023 09:21:28 Hib, unspecified formulation 2 completed Not Available [facility] 06/21/2023 09:21:28 COVID-19, mRNA, LNP-S, PF, 100 mcg/0.5mL dose or 50 mcg/0.25mL dose 1 completed Not Available [facility] 06/21/2023 09:21:28 Hib, unspecified formulation 5 completed Not Available [facility] 06/21/2023 09:21:28 Hep B, adolescent or pediatric 8 completed Not Available [facility] 06/21/2023 09:21:28 OPV 5 completed Not Available [facility] 06/21/2023 09:21:28 Tdap 8 completed Not Available [facility] 06/21/2023 09:21:28 DTP 3 completed Not Available [facility] 06/21/2023 09:21:28 influenza, unspecified formulation 3 completed Not Available [facility] 06/21/2023 09:21:28 Influenza, split virus, quadrivalent, PF 9 completed Not Available [facility] 06/21/2023 09:21:28 DTP 5 completed Not Available [facility] 06/21/2023 09:21:28 Influenza, split virus, quadrivalent, preservative 7 completed Not Available [facility] 10/04/2019 02:34:28 Tdap 7 completed Not Available [facility] 10/04/2019 02:34:49 Influenza, split virus, quadrivalent, preservative 5 completed Not Available [facility] 10/04/2019 02:32:10 Past Encounters Encounter ID Performer Location Encounter Start Date Encounter Closed Date Diagnosis/Indication Diagnosis SNOMED-CT Code Diagnosis ICD10 Code Diagnosis Note [id number] MD [facility] ([address] [address] [place] [address] 07/06/2015 19:51:35 07/07/2015 23:24:19 Asthma 399825830 J45.909 Discussed care and medicaiton - He is curently only using albuterol- advised on using controler medication both inhaled steroids and singlar. He would like to have a nebulizer at home for the when he is really having a hard time. Active immunization 3387 9002 Z23 Increased blood pressure 61863687 R03.0 Advised on healthy lving- will follow up with repeat blood pressure. [id number] Nikolas Martinez DO [facility] ([address] [address] [place] [address] 07/12/2016 16:49:43 07/13/2016 10:04:53 Asthma 800712625 J45.31 Hard to quantify but I would say at least mild persistent with acute exacerbati on.Will give short burst of steroidsRe fill symbicort and singulairH old off on spiriva for now until seen by Dr. Giles to reassess control once back on appropriat e regimen [id number] Namrata solomon MD [facility] ([address] [address] [place] [address] 01/25/2017 10:33:58 01/26/2017 12:11:41 Moderate persistent asthma 352616619 J45.40 Encouraged complaince , regular use of ventolin with exacerbati on. FU 2 weeks for recheck of symptoms. [id number] MD [facility] ([address]) [address] [place] [address] 04/20/2017 12:04:43 04/23/2017 14:06:19 Asthma 169522745 J45.909 reveiwed action plan and encouraged to use inhalers and avoid triggers Acne vulgaris 34408569 L 70.0 discussed dx and tx option and will start with skin care and retinA also discussed sunscreen [id number] Cynthia Giles MD [facility] [address] [facility] [address] [place] [address] 08/02/2017 11:54:37 08/15/2017 15:47:52 Asthma 721050807 J45.909 Discussed dx and medication use. Advised on action plan and use of additional allergy medication in the fall. Also reviewed inhaler use. Acute exac erbation of chronic asthmatic bronchitis 148585713 J44.1 currently in an exacerbati on will tx with a slow grady and advised to follow up if no improvemen t. Active or passive immunization 132223124 Z23 reveiewed and updated [id number] Lizzeth Mai MD [place] [address] [address] [facility] [address] [place] [address] 08/29/2017 12:08:23 09/05/2017 14:02:21 Asthma 536361586 J45.909 Acute asthma 968672637 J 45.901 - wheezing on exam today- has estimated 5 exacerbati ons per year- patient baseline O2 difficult to assess but higher than 93% on at least one prior normal visit, however patient visit hx shows exacerbati ons- Treated with prednisone 40mg x 5 days stopped on sunday- Rx prednisone 60 mg po qd for 5 days- RTC if symptoms not resolved- RTC for asthma management if symptoms do resolve for further evaluation [id number] MD Jeannette Earl (Adult Med) [address] [place] [address] 02/16/2020 15:16:42 02/17/2020 10:46:56 Adult health examination 416129805 Z00.01 Encouraged patient to eat well balanced meals, live active lifestyle and attend routine vision/den luli apts. Asthma 806773409 J45.30 dwp prn albuterol use, daily control medsreview ed AAP Acute exac erbation of asthma 870482920 J45.901 dwp acute vs chronic meds, pt reports has responded to medrol dose pack in past, will rx, and advised neb use prn [id number] MD Jeannette Earl (Adult Med) [address] [place] [address] 04/20/2020 08:13:12 04/21/2020 14:27:50 Acute exacerbation of asthma 152515794 J45.901 dwp acute vs chronic meds, pt reports has responded to medrol dose pack in past, will rx higher dose burst, and advised neb use prn [id number] MD Jeannette Earl (Adult Med) [address] [place] [address] 06/18/2020 08:13:43 06/28/2020 10:21:30 Acute exacerbation of asthma 224679388 J45.901 dwp acute vs chronic meds, pt reports has responded to medrol dose pack in past, will rx higher dose burst, and advised neb use prn Upper resp iratory infection 59430886 J06.9 acute flare r/t respirator y infection, dwp medrol dose pack and albuterol prnstart christian, [facility] r/b/se [id number] MD Jeannette Earl (Adult Med) [address] [place] [address] 09/22/2020 10:37:42 09/23/2020 07:56:05 Acute exacerbation of asthma 581455056 J45.901 weather change triggering acute flare up; dwp acute vs chronic meds, pt reports hasn't responded to medrol dose pack in past, will rx higher dose burst, and advised neb use prn Asthma 887202493 J45.30 dwp prn albuterol use, daily control medsreview ed AAP [id number] MD Jeannette Earl (Adult Med) [address] [place] [address] 11/29/2020 08:11:25 11/30/2020 13:01:36 Acute exacerbation of asthma 397895648 J45.901 weather change triggering acute flare up; dwp acute vs chronic meds, pt reports hasn't responded to medrol dose pack in past, will rx higher dose burst, and advised neb use prnwill also start prn duoneb [id number] MD Jeannette Earl (Adult Med) [address] [place] [address] 07/20/2022 11:48:11 07/21/2022 09:35:09 Adult health examination 346324449 Z00.01 Encouraged patient to eat well balanced meals, live active lifestyle and attend routine vision/den luli apts. Asthma 434534980 J45.30 dwp prn albuterol use,mert ukast qhsreviewe d AAPbudeson kermit/formot lidia fumarate, spiriva Overweight 959756245 E66 .3 advised low fat, low cholestero l diet, regular exercise and weight reduction. [id number] MD Jeannette Earl (Adult Med) [address] [facility] [place] [address] 05/07/2023 10:18:48 05/08/2023 12:25:56 Asthma 325153165 J45.30 dwp prn albuterol use,mert ukast qhsreviewe d AAPbudeson kermit/formot lidia fumarate, spiriva Overweight 245169066 E66 .3 advised low fat, low cholestero l diet, regular exercise and weight reduction. Adult [facility] th examination 628645496 Z00.01 Encouraged patient to eat well balanced meals, live active lifestyle and attend routine vision/den luli apts. Pruritic rash 23784977 L 28.2 on foot, [id number] MD Jeannette Earl (Adult Med) [address] [facility] [place] [address] 10/29/2023 10:29:38 10/31/2023 11:24:52 Asthma 537838363 J45.30 dwp prn albuterol use,mert ukast qhsreviewe d AAPbudeson kermit/formot lidia fumarate, spiriva Overweight 486146396 E66 .3 advised low fat, low cholestero l diet, regular exercise and weight reduction. Primary insomnia 9939276 F51.01 advised sleep hygeine, try melatonin, unisom Depression screening 171 900993 Z13.31 depression screening positive-r epeat at followup [id number] MD Jeannette Earl (Adult Med) [address] [facility] [place] [address] 03/10/2024 16:15:51 03/11/2024 16:08:56 Injury of Achilles tendon 922090588 S86.002D left side, will refer to surgeonnon weight bearing till cleared [id number] JEAN-CLAUDE RICH DPM [facility] [address] [place] [address] 03/11/2024 10:37:52 03/17/2024 08:10:07 Rupture of left Achilles tendon [id number] 9056769 S86.012A I have reviewed with the patient all of the possibilit ies for treatment. X-rays are negative for a fracture so I have recommende d an MRI to further evaluate the condition and the extent of the injury. I have given the patient a pneumatic walking boot to immobilize and I have instructed the patient to stay off, ice, rest and keep and katty wrap around the area to reduce swelling. I have discussed the possible need for surgery and have discussed all of the possible scenarios. For now, the patient's injury will be stabilized and supported until more informatio n can be ascertaine d. Pain of le ft ankle joint [id number] 9952102 M25.572 Tinea pedis 4772809 B35. 3 The patient was educated why and how the fungal infection evolved in their feet and the patient was given informatio n regarding how to prevent further infection. The patient was told to keep feet dry and change socks. The patient was told to be careful with old shoes and excessive sweating. The patient was educated regarding both OTC and prescripti on treatments . Xerosis du e to atopic dermatitis [id number] L85.3 The patient was educated regarding proper hydration of their feet/ankle s and the patient was given several recommenda tions for proper creams to protect/hy drate and keep the area healthy [id number] Namrata solomon MD [facility] (Adult Med) [address] [place] [address] 12/02/2024 11:44:38 12/08/2024 17:52:14 Adult health examination [id number] Z00.01 Encouraged patient to eat well balanced meals, live active lifestyle and attend routine vision/den luli apts. Overweight [id number] E66 .3 advised low fat, low cholestero l diet, regular exercise and weight reduction. Asthma [id number] J45.30 dwp prn albuterol use,mert ukast qhsreviewe d AAPcontrol inhaler as well Seasonal a llergic rhinitis [id number] J30.2 cont astepro and flonase, will send refill when needed Health Concerns Section Related Observation LastModified by Organization Detai ls LastModified Time None Recorded Concern Status LastModified by Organization Details LastModified Time None Recorded Advance Directives Directive N: Payers Insurance Date Sequence Insurance Name Policy Number Policy Arroyo Covered Member ID Arroyo Member ID Guarantor Name 03/10/2024 1 [place] [facility] Eloy Cotton [id number] Eloy Cotton 06/16/2020 SLIDING FEE SCHEDULE - DISCOUNT Eloy Cotton 03/10/[address] [facility] [id number] Eloy Cotton [id number] Eloy Cotton 01/19/2020 2 *SELF PAY* Co robert Cotton 07/03/2022 SLIDING FEE SCHEDULE - DISCOUNT Eloy Cotton 12/15/2019 1 [place] [id number] Nick Pike [id number] Eloy Cotton 12/08/2024 1 [place] [facility] (MEDICAID REPLACEMENT - HMO) [id number] Eloy Cotton [id number] Eloy Cotton Notes Date Note Type Note Provider Name and Address Organization Details Recorded Time 05/07/2023 text/html pt c/o itchy korey h on bottom of right foot. went to for it a few months for it and was given clotrimazole-betam ethasone 1 %-0.05 % topical cream that took it away but rash came back Aminta Leung APN, MANAGER E [employer] Attn: [address] [place], [address], [facility] 05/07/2023 10:53:18 10/29/2023 text/html asthma follow up with no complaints, recent cold but otherwise feeling fine some issues with falling asleep, has not tried anything otc Aminta Leung APN, MANAGER E [employer] Attn: [address] [place], [address], [facility] 10/31/2023 11:34:59 03/10/2024 text/html Pt. is here for hospital f/u. He ruptured his left achilles tendon last 03/05/24, was seen in ER and given referral but that provider did not take his insurance, needs new referral Aminta Leung APN, FNP-C Attn: [address] , [place], [address], [facility] 03/10/2024 17:04:33 03/11/2024 text/html Patient states 1 week ago playing basketball when he felt a pop in his left heel feeling like someone hit him in the back of the ankle causing sharp pain graded 10/10. Patient states losing strength and the ability to bring his foot down and presented to the ED where he was informed of an achilles rupture and a need to see an orthopedic surgeon Denies nausea, vomiting, fever, chills, shortness of breath, chest pain, difficulty breathing, calf pain. Patient denies thickened toenails, toe nail changes, skin changes on lower legs, tingling and numbness in toes and feet and reports heel joint pain and sharp pain when walking JEAN-CLAUDE RICH DPM [address] [place], [address], [facility] 03/14/2024 18:07:04 12/02/2024 text/html here for annual exam having sob but thinks its an asthma flare up due to the weatherleft ear sounds muffled- denies pain. started 2 days ago Aminta Leung APN, FNP-C Attn: [address] , [place], [address], [facility] 12/02/2024 12:14:59
--- OUTSIDE RECORDS SUMMARY | 2025-03-23 11:43 | XMS_ITS | Clinical Summary ---
Author Organization [facility] Address [address] [place] [address] Care Team Providers Care Retail Advertising Executive Name Role Phone None, Provider MD Primary Care Provider Unavaila ble Allergies No known active allergies Medications budesonide-formote rol 160-4.5 MCG/ACT inhaler Inhale 2 puffs into the lungs daily. Active montelukast 10 MG tablet Take 10 mg by mouth nightly at bedtime. Active albuterol (5 MG/ML) 0.5% nebulizer solution Take 0.5 mLs (2.5 mg total) by nebulization every 6 (six) hours as needed for Wheezing. 20 mL 03/18/20 19 Active HYDROcodone-acetam inophen 5-325 MG tabletIndications: Acute Pain < 3 Day Supply Take 1 tablet by mouth every 6 (six) hours as needed. Indications: Acute Pain < 3 Day Supply 12 tablet 10/04/19 21 Active ondansetron 4 MG disintegrating tablet Take 1 tablet (4 mg total) by mouth every 8 (eight) hours as needed for Nausea. 20 tablet 10/04/19 21 Active tamsulosin 0.4 MG Cap Take 1 capsule (0.4 mg total) by mouth daily. 10 capsule 10/04/19 21 Active Active Problems No known active problems Social History Tobacco Use Types Packs/Day Years Used Date Smoking Tobacco: Never Smokeless Tobacco: Never Alcohol Use Standard Drinks/Week Comments Not Currently 0 (1 standard drink = 0.6 oz pur e alcohol) occasional Sex and Gender Information Value Date Recorded Sex Assigned at Male 11/03/2024 10:27 PM POCKET BUILDER Legal Sex Male 6:19 PM CDT Gender Identity Not on file Sexual Orientation Not on file Last Filed Vital Signs Vital Sign Reading Time Taken Comments Blood Pressure 131/94 11/03/2024 10:26 PM POCKET BUILDER Pulse 94 11/03/2024 10:26 PM POCKET BUILDER Temperature 37.1 C (98.7 F) 11/03/2024 10:26 PM POCKET BUILDER Respiratory Rate 18 11/03/2024 10:26 PM POCKET BUILDER Oxygen Saturation 100% 11/03/2024 10:26 PM POCKET BUILDER Inhaled Oxygen Concentration - - Weight 86.4 kg (190 lb 7.6 oz) 11/03/2024 10:26 PM POCKET BUILDER Height 182.9 cm (6') 11/03/2024 10:26 PM POCKET BUILDER Body Mass Index 25.83 11/03/2024 10:26 PM POCKET BUILDER Plan of Treatment Health Maintenance Due Date Last Done Comments Annual Physical 1995 Pneumococcal Vaccine: Pediatrics (0 to 5 Years) and At-Risk Patients (6 to 49 Years) (1 of 2 - PCV) 2011 COVID-19 Vaccine (3 - season) 2024 09/26/2021, 06/16/2021 DTaP, Tdap and Td Vaccines (4 - Td or Tdap) 08/02/2027 08/02/2017, 07/13/2008, 06/09/2003, Additional history exists Hepatitis B Vaccines Completed 07/17/1998, 03/23/1998, 12/31/1997 Meningococcal Vaccine Aged Out 07/13/2008 No porsha aditi eligible based on patient's age to complete this topic Hepatitis C Completed 11/02/2020, 10/18, 11/02/2020 HPV Vaccines Aged Out No longer eligi ble based on patient's age to complete this topic Meningococcal B Vaccine Aged Out No l onger eligible based on patient's age to complete this topic RSV Immunizations Under 20 Months Aged Out No longer eligible based on patient's age to complete this topic Insurance Care Teams Retail Advertising Executive Relationship Specialty Start Date End Date None, Provider, PCP - General 10/04/20
--- OUTSIDE RECORDS SUMMARY | 2025-03-23 11:43 | XMS_ITS | Clinical Summary ---
Author Organization [facility] Address [address] [place] [address] Phone Care Team Providers Care Supervisor Fertilizer Processing Name Role Phone Ricci Aminta TAVAREZ CNP Primary Care Provider [phone] Allergies No known active allergies Medications predniSONE (DELTASONE) 10 MG Tablet Take 1 Tab by mouth daily. TAKE 3 TABLETS PO DAILY X 3 DAYS THEN TAKE 2 TABLETS PO DAILY X 3 DAYS THEN TAKE 1 TABLET PO DAILY X 3 DAYS 18 Tab 8 Active Additional Information Patient not taking.Reported on 11/02/2020 albuterol 108 (90 Base) MCG/ACT Aerosol Solution take 2 Puffs by inhalation every 6 hours as needed for Wheezing. 1 Inhaler 8 Active albuterol (PROVENTIL, VENTOLIN) (2.5 MG/3ML) 0.083% Nebulizer Soln 2.5 mg by Nebulization route. Active predniSONE (DELTASONE) 50 MG Tablet Take 1 Tab by mouth daily. 4 Tab 9 Active Additional Information Patient not taking.Reported on 11/02/2020 albuterol 108 (90 Base) MCG/ACT Aerosol Solution take 2 Puffs by inhalation every 6 hours as needed for Wheezing or Cough. 1 Inhaler 9 Active budesonide-form oterol fumarate (SYMBICORT) 160-4.5 MCG/ACT Aerosol take 2 Puffs by inhalation 2 times daily. 1 Inhaler 9 Active montelukast (SINGULAIR) 10 MG Tablet Take 1 Tab by mouth every evening. 30 Tab 9 Active valACYclovir (Valtrex) 1 GM Tablet Take 1 Tablet by mouth 2 times daily. 20 Tablet 1 Active predniSONE (DELTASONE) 50 MG Tablet Take 1 Tablet by mouth daily. 5 Tablet 2 Active Social History Tobacco Use Types Packs/Day Years Used Date Smoking Tobacco: Former Cigarettes Q uit: 04/17/2015 Smokeless Tobacco: Never Tobacco Cessation:Counseling Given: No Alcohol Use Standard Drinks/Week Comments Yes 0 (1 standard drink = 0.6 oz pur e alcohol) Sex and Gender Information Value Date Recorded Sex Assigned at Not on file Legal Sex Male 9:39 AM CDT Gender Identity Not on file Sexual Orientation Not on file Last Filed Vital Signs Vital Sign Reading Time Taken Comments Blood Pressure 136/89 07/04/2022 12:09 PM CDT Pulse 81 07/04/2022 12:09 PM CDT Temperature 36.4 C (97.6 F) 07/04/2022 12:09 PM CDT Respiratory Rate 16 07/04/2022 12:09 PM CDT Oxygen Saturation 96% 07/04/2022 12:12 PM CDT Inhaled Oxygen Concentration - - Weight 85.3 kg (188 lb) 07/04/2022 12:09 PM CDT Height 182.9 cm (6') 07/04/2022 12:09 PM CDT Body Mass Index 25.5 07/04/2022 12:09 PM CDT Plan of Treatment Health Maintenance Due Date Last Done Comments Human Papillomavirus (HPV) Immunization (1 - Male 3-dose series) 2007 SARS-COV-2 Immunization (3 - season) 2024 09/26/2021, 06/16/2021 Influenza Immunization (Season Ended) 2025 08/02/2017, 07/06/2015, 10/03/2012 Respiratory Syncytial Virus (RSV) Immunization (Adult) (1 - 1-dose 75+ series) 2067 Hepatitis B Immunization Completed 998, 03/23/1998, 12/31/1997 DTaP/Tdap/Td Immunization Discontinued 2016, 07/13/2008, 06/09/2003, Additional history exists TdaP Immunization Completed 08/02/2017, 07/13/2008 Hepatitis C Virus (HCV) Screening Completed 11/02/2020, 04/14/2019 Meningococcal Immunization (ACWY) Aged Out No longer eligible based on patient's age to complete this topic Pneumococcal Immunization Combined Aged Out No longer eligible based on patient's age to complete this topic Rotavirus Immunization Aged Out No lo nger eligible based on patient's age to complete this topic Procedures Procedure Name Priority Date/Time Associated Diagnosis Comments HEPATITIS C ANTIBODY STAT 11/02/2020 7:59 PM SHIPPING CLERK PACKING from Last 3 Months or Most Recently Relevant to Health Maintenance Results * Hepatitis C Antibody (11/02/2020 7:59 PM SHIPPING CLERK PACKING) hepatitis C antibody 0.07 <1 S/CO [facility] ARCH [id number] B 11/03/2020 4:28 PM SHIPPING CLERK PACKING [facility] Comment: Signal/Cutoff ratio < 0.79 is Nondetected Signal/Cutoff ratio 0.80-0.99 is Grayzone Signal/Cutoff ratio > 0.99 is Detected Supplemental assays are recommended if signal/cutoff ratio is >/=1.00. Signal/cutoff ratio result >/= 5.00 is 97% predictive of positivity for recombinant immunoblot assay (RIBA) and will be reported to the [place] Department of Public Health as required. Blood Venipuncture / Unknown 11/02/2020 7:59 PM SHIPPING CLERK PACKING 11/02/2020 7:59 PM SHIPPING CLERK PACKING us Yisel Trujillo Page PAC CHEMISTRY ORDERABLES Final R esult [facility] [address] [place] [address], [place] from Last 3 Months or Most Recently Relevant to Health Maintenance [place] [address] Care Teams Supervisor Fertilizer Processing Relationship Specialty Start Date End Date Wynne, DAYSI Lemos, VI [address] [place] [address] PCP - General Family Medicine 07/04/22
--- NOTE | 2025-03-23 11:44 | ED_ITS ---
HPI - General Adult General Chief complaint: Upper Respiratory Infection Stated complaint: Shortness of Breath/Bee Sting Time Seen by Provider: 03/23/25 11:55 Source: patient, RN notes reviewed and old records reviewed Mode of arrival: ambulatory Limitations: no limitations History of Present Illness HPI narrative: 34-year-old male presents to the [facility] with concerns for asthma exacerbation that started about 1 week ago. Has been using albuterol nebulizer in inhaler with no relief. Describes it as tightness, coughing. Denies chest pain. History of asthma, reports taking montelukast Onset (ago): week(s) (1) Related Data Home Medications ?Medication ?Instructions ?Recorded ?Confirmed ?Last Taken ?Type budesonide 160 mcg-glycopyr 9 160 inh inhalation BID 03/22/21 06/04/22 Unknown History mcg-formot 4.8 mcg/actuation HFA inhaler (Breztri Aerosphere) albuterol sulfate 2.5 mg/3 mL mg 03/23/25 Unknown History (0.083 %) solution for nebulization Allergies Allergy/AdvReac Type Severity Reaction Status Date / Time No Known Allergies Allergy Verified 06/04/22 17:59 Review of Systems Review of Systems: All systems reviewed & are unremarkable except as noted in HPI and below Constitutional: Constitutional: Reports no additional constitutional complaints ENT: Reports system reviewed and no additional complaints, except as documented Cardiovascular: Cardiovascular: Reports no additional cardiovascular complaints, Denies chest pain and Denies dyspnea Respiratory: Respiratory: Reports as per HPI, Denies chest congestion, Reports cough, Reports dyspnea and Reports wheezing Musculoskeletal: Musculoskeletal: Reports no additional musculoskeletal complaints Integumentary/Breasts: Skin/Breast: Reports system reviewed and no additional complaints, except as docu PMFSH Past Medical History Medical History Tinea pedis Asthma Surgical History Surgical History No history of previous surgery Family History Family History Other No significant family history Social History Social History Smoking status: Never smoker Alcohol intake: current Alcohol use details: rare social Substance use: never Living arrangements: with family Gender identity (if verbalized by the patient): Male Comments At the time of my signature, I reviewed and agree with the nursing past medical, surgical, social, and family history. There is no relevant family history pertinent to the patient complaint. Exam Const: General: cooperative, healthy appearing, comfortable, no acute distress, well developed, alert and well nourished Nutritional Appearance: well nourished Orientation/consciousness: patient oriented x3 Limitations: no limitations HENMT: Head: normal to inspection Ears: hearing grossly normal bilaterally, external ears normal, TM's normal bilaterally, EAC's normal, mastoids normal and no periauricular adenopathy Face/Nose/Sinus: Normal external nose present and Normal nares present Mouth: Yes Normal oral and palatal mucosa present, Yes lip normal, Yes tongue normal and Yes moist mucous membranes Throat: posterior oropharynx normal, uvula midline and no uvular edema Eyes: General: appearance normal, both eyes and all related structures Alignment and Position: alignment normal Neck: Neck: normal visual inspection, full ROM, no lymphadenopathy and no meningeal signs Chest: Chest palpation & inspection: normal inspection of the chest Resp: Effort & Inspection: normal respiratory effort and able to speak in complete sentences Auscultation: no crackles, no rales, no rhonchi and wheeze s expiratory wheezes, inspiratory wheezes and throughout Cardio: Rate: regular rate Skin: General skin exam: normal color and no rashes or lesions noted Neuro: General: patient oriented x3, gait normal, moves all extremities and no meningeal signs Cognition (Neuro): normal cognition Speech: normal speech Gait exam (Neuro): Normal gait present Extrem: General: normal to inspection, full ROM, capillary refill normal and normal gait Psych: Appearance: grossly normal and well kempt Mental Status: mental status grossly normal Speech and movement: Normal speech and movement present and Clear speech present Affect: normal affect Attitude: cooperative Course Course Emergency Course: on arrival patient's inspiratory-expiratory wheezing, prednisone and nebulizer treatment given. Patient does report improvement post treatment. Re-evaluation at 12:36 p.m., reports improvement. Only expert or E wheezing noted on the right lower lobe all other broderick have improved Level of Care: Express Care Visit Vital Signs Vital signs: Vital Signs Temperature 98.1 F 03/23/25 11:47 Pulse Rate 91 03/23/25 11:47 Respiratory Rate 16 03/23/25 11:47 Blood Pressure 136/90 03/23/25 11:47 Pulse Oximetry 96 03/23/25 11:47 Oxygen Delivery Room Air 03/23/25 11:47 Temperature 98.1 F 03/23/25 11:47 Pulse Rate 86 03/23/25 12:29 Respiratory Rate 16 03/23/25 12:29 Blood Pressure 136/90 03/23/25 11:47 Pulse Oximetry 98 03/23/25 12:29 Oxygen Delivery Room Air 03/23/25 11:47 Reviewed Medical Decision Making MDM Narrative Medical decision making narrative: Patient sitting comfortably in exam room. Nontoxic, vitals stable. Patient in no acute distress patient presents for asthma exacerbation. Neb treatment and steroids given in clinic patient reports improvement. Exam improvement 2 lung sounds. Patient appropriate for outpatient treatment with streaks signs and symptoms proceed to the emergency room. Discharge instructions reviewed with patient, as well as provided in writing per nursing staff. The instructions also include specific and strict return/GO TO THE ER as well as f/u information. All questions have been answered, and the patient deny any further questions with discharge and discharge plan. Some parts of this dictation were generated by voice recognition software and may contain typographical and/or grammatical inaccuracies. Differential Diagnosis Differential Diagnosis: Asthma, bronchitis Medical Records Medical records reviewed: Yes I reviewed the external patient's medical records. Vital Signs Vital Signs: Vital Signs Temperature 98.1 F 03/23/25 11:47 Pulse Rate 91 03/23/25 11:47 Respiratory Rate 16 03/23/25 11:47 Blood Pressure 136/90 03/23/25 11:47 Pulse Oximetry 96 03/23/25 11:47 Oxygen Delivery Room Air 03/23/25 11:47 Temperature 98.1 F 03/23/25 11:47 Pulse Rate 86 03/23/25 12:29 Respiratory Rate 16 03/23/25 12:29 Blood Pressure 136/90 03/23/25 11:47 Pulse Oximetry 98 03/23/25 12:29 Oxygen Delivery Room Air 03/23/25 11:47 Reviewed Lab Data Lab results reviewed: Yes I reviewed the patient's lab results. Labs: Reviewed Critical Care Time Critical Care Time Critical Care Time: No Discharge Plan Discharge Clinical Impression: Asthma exacerbation Qualifiers: Asthma severity: mild Asthma persistence: unspecified Qualified Code(s): J45.901 - Unspecified asthma with (acute) exacerbation Patient Disposition: Home Condition: Stable Instructions: Antibiotic Form, Asthma (ED) Additional Instructions: use your nebulizer every 4-5 hours while awake for the next 3 days then as needed take steroids as prescribed, next dose will be tomorrow morning follow-up with primary care provider this week for worsening symptoms go directly to the emergency Patient Language: American Prescriptions: New prednisone 20 mg tablet See Rx Instructions .Route .COMPLEX Qty: 15 0RF Rx Instructions: Take 60 mg daily for 2 days, 40 mg daily for 3 days, 20 mg daily for 3 days No Action Breztri Aerosphere 160-9-4.8 mcg/actuation HFA aerosol inhaler 160 inh INHALATION BID albuterol sulfate 90 mcg/actuation Aerosol Powdr Breath Activated 2 inh INHALATION Q4-6H PRN (Reason: Dyspnea) Qty: 1 1RF montelukast [Singulair] 10 mg tablet 10 mg PO DAILY Qty: 30 0RF albuterol sulfate 2.5 mg /3 mL (0.083 %) solution for nebulization Follow-up/Referrals: Ricci,Aminta Escalante APN [Primary Care Provider] - 2 Weeks ( [facility] follow- up) Time of Disposition: 12:38
[2025-03-23 11:47] VITALS: BP 136/90; PULSE 91; RESP 16; TEMP 36.7; O2SAT 96
[2025-03-23] MEDS: ALBUTEROL SULFATE NEB 2.5 MG/3 ML INH INHALATION (12:08)
[2025-03-23] MEDS: IPRATROPIUM BR 0.02% INH SOLN 0.5 MG/2.5 ML VIAL INHALATION (12:09)
[2025-03-23 12:29] VITALS: PULSE 86; RESP 16; O2SAT 98
== END 2025-03-23 12:45 | disposition home or self-care (01) ==
PROVIDERS: Emergency Provider Nurse Practitioner; PCP Nurse Practitioner Family
DX: J45.901 Unspecified asthma with (acute) exacerbation (principal)
CPT/HCPCS: 94640; 99213; G0463; J7512